=== PATIENT | male | born 1940 | race Caucasian/White ===

== ENCOUNTER 2018-07-23 03:52 | Inpatient (IN) | payer BC, MEDICARE ==
[2018-07-23 04:12] LABS: #Basophils 0.1 thou/uL (0.0-0.2); #Eosinphils 0.3 thou/uL (0.0-0.7); #Lymphocytes 2.1 thou/uL (1.20-3.40); #Monocytes 0.8 thou/uL (0.11-0.59); %Basophils 1.1 % (0.0-1.0); %Eosinophils 3.2 % (0.0-10.0); %Lymphocytes 22.8 % (21.0-51.0); %Monocytes 8.5 % (0.0-10.0); %Neutrophils 64.4 % (42.0-75.0); Hemoglobin 16.1 g/dL (14.0-18.0); Mean Corpuscular HGB CONC 34.1 g/dL (32.0-36.0); Mean Corpuscular Hemoglobin 31.6 pg (27.0-31.0); Mean Corpuscular Volume 92.6 fL (78.0-98.0); Mean Platelet Volume 8.9 fL (7.4-10.4); Platelet Count 211 thou/uL (130-400); RBC Distribution Width 12.1 % (11.5-14.5); Red Blood Cell (RBC) Count 5.09 mill/uL (4.70-6.10); White Blood Cell (WBC) Count 9.4 thou/uL (4.8-10.8)
[2018-07-23 04:18] LABS: INR-International Normal Ratio 1.1; PTT 29.9 SEC (22.9-36.1); Prothrombin Time 13.9 SEC (12.0-14.7)
[2018-07-23 04:28] LABS: ALT (SGPT) 47 U/L (8-55); AST (SGOT) 38 U/L (5-34); Albumin 4.2 g/dL (3.4-4.8); Alkaline Phosphatase 84 U/L (40-150); Anion Gap 12 mmol/L (10-20); BUN (Urea Nitrogen) 13 mg/dL (8.4-25.7); Bilirubin, Total 0.6 mg/dL (0.2-1.2); CK (CPK) 109 U/L (30-200); Calc. Creatinine Clearance 0 mL/min (70-130); Calcium 9.7 mg/dL (7.8-10.44); Carbon Dioxide 27 mmol/L (23-31); Chloride 101 mmol/L (98-107); Estimated GFR-MDRD 70; Globulin 3.1 g/dL (2.4-3.5); Glucose 213 mg/dL (83-110); Potassium 4.7 mmol/L (3.5-5.1); Protein, Total 7.3 g/dL (5.8-8.1); Sodium 135 mmol/L (136-145)
[2018-07-23 04:30] LABS: CKMB 2.2 ng/mL (0-6.6); Troponin I Less than 0.010 ng/mL (< 0.028)
[2018-07-23] MEDS ORDERED: hydrALAZINE 20 MG/ML VIAL ONE (04:30)
[2018-07-23] MEDS ORDERED: Ondansetron PF 4 MG/2 ML Vial IVP PRN (06:09)
[2018-07-23] MEDS ORDERED: Acetaminophen 325 MG TAB PO PRN (06:09)
[2018-07-23] MEDS ORDERED: Ondansetron ODT 4 MG TAB PO PRN (06:09)
--- NOTE | 2018-07-23 08:17 | CT ---
FINAL REPORT: BRAIN CT WITHOUT IV CONTRAST: History: 78-year-old male with history of neurologic changes, bruising and laceration of head. Patient status post TPA, change in mental status. FINDINGS: No focal mass or midline shift. No intra or extraaxial hemorrhage. There are several tiny punctate la cunar infarcts. IMPRESSION: No mass or bleed. Small stable lacunar infarcts. No significant change from 07-23-18 at 3:58 a.m. POS: [facility]
--- NOTE | 2018-07-23 08:21 | CT ---
PRELIMINARY REPORT/[facility]/EMERGENTY AFTER-HOURS PROCEDURE Addendum created by Carolyne Garrido DO on 07/23/2018 4:25 AM Central Time ([place])THIS REPORT CO NTAINS FINDINGS THAT MAY BE CRITICAL TO PATIENT CARE. The findings were verbally communicated via tel ephone conference with JOSE ALEJANDRO Henson at 4:20 AM CDT on 07/23/2018. The findings were acknowledged a nd understood. Initial Report created on 07/23/2018 4:08 AM Central Time ([place] & [place]) CT Head Without Intravenous Contrast EXAM DATE/TIME: 07/23/2018 3:56 AM CLINICAL HISTORY: 78 years old, male; Injury or trauma and signs and symptoms; Fall; Initial encounter; Blunt trauma (c ontusions or hematomas); Without loss of consciousness; Numbness / parasthesia; Left; Patient HX: s troke alert m79, patient fell and hit head, then was unable to move left side, last seen normal at 0200, patient now has slurred speech TECHNIQUE: Axial computed tomography images of the head/brain without intravenous contrast. COMPARISON: No relevant prior studies available. FINDINGS: Brain: Remote lacunar infarcts of the basal ganglia. There are well-demarcated foci of decreased atte nuation of the right parietal region, probably from additional remote lacunar infarcts. No acute hemo rrhage. Ventricles: Normal. No ventriculomegaly. Bones/joints: Normal. No acute fracture. Sinuses: Normal as visualized. No acute sinusitis. Mastoid air cells: Normal as visualized. No mastoid effusion. Soft tissues: Normal. IMPRESSION: No acute intracranial process. ASPECTS is 10. Thank you for allowing us to participate in the care of your patient. Dictated and Authenticated by: Carolyne Garrido DO 07/23/2018 4:08 AM Central Time ([place]) FINAL REPORT: CT BRAIN WITHOUT CONTRAST: I agree with the preliminary report provided. No acute intracranial abnormality is evident. There are remote lacunar infarcts involving the basal g anglia as well as the subcortical white matter of both cerebral hemispheres. Small lacunar infarction s involve the cerebellum bilaterally. Frontal and paranasal sinuses are clear. Mastoid air cells are clear. POS: [facility]
--- NOTE | 2018-07-23 08:24 | CT ---
PRELIMINARY REPORT/[facility]/EMERGENTY AFTER-HOURS PROCEDURE CT Cervical Spine Without Intravenous Contrast EXAM DATE/TIME: 07/23/2018 3:59 AM CLINICAL HISTORY: 78 years old, male; Injury or trauma and signs and symptoms; Fall; Initial encounter; Blunt trauma; N umbness; Patient HX: stroke alert m79, patient fell and hit head, then was unable to move left si de, last seen normal at 0200, patient now has slurred speech TECHNIQUE: Axial computed tomography images of the cervical spine without intravenous contrast. COMPARISON: No relevant prior studies available. FINDINGS: Vertebrae: Degenerative changes of the cervical spine. There is neuroforaminal narrowing with severe narrowing of the left C3-C4, moderate narrowing of the right C4-C5, moderate narrowing of bilateral C 5-C6, moderate narrowing of the left C6-C7. Discs/Spinal canal/Neural foramina: See Vertebrae Finding. Soft tissues: Unremarkable. Lungs: Lung apices are normal. IMPRESSION: No acute fracture. Thank you for allowing us to participate in the care of your patient. Dictated and Authenticated by: Carolyne Garrido DO 07/23/2018 4:25 AM Central Time ([place]) FINAL REPORT CT CERVICAL SPINE WITHOUT CONTRAST: I agree with the preliminary report provided. No acute fracture or subluxation is evident. There is a fat density mass lesion seen within the left paraspinal musculature of the neck measuring 4.6 x 7.3 cm, consistent with an intramuscular lipoma. There is multilevel spondylosis of the cervical spine, moderate in severity. Prevertebral soft tissue s and lung apices are within normal limits. IMPRESSION: 1. No acute fracture or subluxation. 2. Left paraspinal musculature lipoma. POS:
[2018-07-23] MEDS ORDERED: Famotidine 20 MG TAB PO SCH ×2 (09:00)
[2018-07-23] MEDS ORDERED: Famotidine/PF 20 mg/2ml Vial SLOW IVP SCH ×2 (09:00)
--- NOTE | 2018-07-23 09:18 | CT ---
PRELIMINARY REPORT/[facility]/EMERGENTY AFTER-HOURS PROCEDURE CT Angiography Head With Intravenous Contrast EXAM DATE/TIME: 07/23/2018 4:03 AM CLINICAL HISTORY: 78 years old, male; Injury or trauma and signs and symptoms; Fall; Initial encounter; Blunt trauma; H ead; Paralysis, transient of limb; Patient HX: stroke alert m79, patient fell and hit head, then was unable to move left side, last seen normal at 0200, patient now has slurred speech TECHNIQUE: Axial computed tomographic angiography images of the head with intravenous contrast using CT angiogra phy protocol. MIP reconstructed images were created and reviewed. COMPARISON: CT Cervical Spine WO Con 07/23/2018 3:59 AM FINDINGS: Right internal carotid artery: Moderate calcifications of the cavernous right ICA with areas of mild to moderate narrowing/irregularities without critical stenosis, image 232 of series 2. Right anterior cerebral artery: Unremarkable. No occlusion or significant stenosis. No aneurysm. Right middle cerebral artery: There are minimal irregularities of the bilateral MCAs. No occlusion or significant stenosis. No aneurysm. Right posterior cerebral artery: There are irregularities involving bilateral motor tester. There is question able beaded appearance of the motor tester, left greater than right. No aneurysm. Right vertebral artery: Unremarkable. No occlusion or significant stenosis. No aneurysm. Left internal carotid artery: There is moderate change in caliber of the cavernous left ICA, image 60 of series 201 correlating to image 227 of series 2. Minimal atheromatous calcifications of the arun nous left ICA. Left anterior cerebral artery: The left A1 is not well visualized. There is diminutive vessel in the respective course of the left A1, image 241-242 of series 2. This could be atretic left A1 segment or collateral. Left middle cerebral artery: There are minimal irregularities of the bilateral MCAs. No occlusion or significant stenosis. No aneurysm. Left posterior cerebral artery: There are irregularities involving bilateral motor tester. There is questiona ble beaded appearance of the motor tester, left greater than right. No aneurysm. Left vertebral artery: There is narrowing of the left intracranial vertebral artery. There are also i rregularities of the proximal cervical left vertebral artery with approximately 50% stenosis. Basilar artery: Mild irregularities of the distal aspect of the basilar artery. No occlusion or signi ficant stenosis. No aneurysm. 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 Irregularities with areas of narrowing more pronounced of the cavernous left ICA with mild irregular appearance of bilateral MCAs and slightly worse involving motor tester with somewhat beaded appearance, again left greater than right. Although the findings may be due to atheromatous changes with soft plaques cannot exclude vasculitis. CT Angiography Neck With Intravenous Contrast TECHNIQUE: Axial computed tomographic angiography images of the neck with intravenous contrast using CT angiogra phy protocol. MIP reconstructed images were created and reviewed. COMPARISON: CT Cervical Spine WO Con 07/23/2018 3:59 AM FINDINGS: VASCULATURE: Right common carotid artery: Moderate atheromatous calcifications of the left carotid bulb. No signif icant stenosis. No dissection or occlusion. Right internal carotid artery: There is at least 68% stenosis of the right proximal ICA. No dissectio n or occlusion. Right external carotid artery: Normal. No occlusion or significant stenosis. Right vertebral artery: There is narrowing of the left intracranial vertebral artery. There are also irregularities of the proximal cervical left vertebral artery with approximately 50% stenosis. Left common carotid artery: Normal. No significant stenosis. No dissection or occlusion. Left internal carotid artery: There is approximately 36% stenosis of the proximal left ICA. No dissec tion or occlusion. Left external carotid artery: Normal. No occlusion or significant stenosis. Left vertebral artery: There is narrowing of the left intracranial vertebral artery. There are also i rregularities of the proximal cervical left vertebral artery with approximately 50% stenosis. NECK: Bones/joints: No acute fracture. Degenerative changes of the cervical spine. Please see CT report of CT C-spine Soft tissues: Normal. No significant soft tissue swelling. IMPRESSION: At least 68% stenosis of the right proximal ICA and approximately 36% stenosis of the proximal left ICA. Irregularities of the proximal cervical left vertebral artery with approximately 50% stenosis. COMMENT: Degree of carotid stenosis was determined using NASCET or SRU criteria. Mild: <50% stenosis. Moderate: 50-69% stenosis. Severe: 70-94% stenosis. Near occlusion: 95-99% stenosis. Occluded: 100% s tenosis. THIS REPORT CONTAINS FINDINGS THAT MAY BE CRITICAL TO PATIENT CARE. The findings were verbally commun icated via telephone conference with ELAINE Mukherjee at 4:56 AM CDT on 07/23/2018. The findings were acknowledged and understood. Thank you for allowing us to participate in the care of your patient. Dictated and Authenticated by: Carolyne Garrido DO 07/23/2018 5:32 AM Central Time ([place]) FINAL REPORT EMERGENCY AFTER HOURS CT ANGIO NECK: Date: 07/23/18 FINDINGS/IMPRESSION: I agree with the preliminary report provided by [facility]. There is a moderate to severe degree of narrowing involving the proximal right ICA with narrowing cliff roaching 70% stenosis. There is very mild atherosclerotic irregularity involving the proximal left internal carotid artery. There is moderate narrowing involving the proximal basilar artery and left intracranial vertebral art himanshu. The right vertebral artery is diminutive. Both anterior cerebral arteries originate off the right internal carotid artery. POS: [facility]
[2018-07-23] MEDS ORDERED: [UNRECOGNIZED DRUG - REMARK] FS SCH (09:26)
[2018-07-23] MEDS ORDERED: Dextrose 5% in Water 1,000 ML IV PRN (09:26)
[2018-07-23] MEDS ORDERED: Dextrose 50% Abboject 50 ML SYRINGE SLOW IVP PRN (09:26)
[2018-07-23] MEDS: Labetalol HCl 100 MG/20 ML VIAL SLOW IVP PRN ×3 (11:02→19:58)
[2018-07-23] MEDS ORDERED: ISOVUE-370 76%-LOCM 1 ML ONE (13:59)
[2018-07-23] MEDS: HumaLOG 300 UNITS/3 ML VIAL SC PRN ×2 (14:59→17:20)
[2018-07-23] MEDS ORDERED: Acetaminophen 650 MG Suppository PR PRN (15:51)
[2018-07-23] MEDS: Sodium Chloride 0.9% 1,000 ML IV SCH ×2 (17:58→21:54)
[2018-07-23] MEDS: Pantoprazole 40 MG VIAL IVP SCH (21:54)
[2018-07-23] MEDS: Atorvastatin Calcium 40 MG TAB PO SCH (21:57)
[2018-07-24 05:50] LABS: #Eosinphils 0.1 thou/uL (0.0-0.7); #Lymphocytes 2.6 thou/uL (1.20-3.40); #Monocytes 1.1 thou/uL (0.11-0.59); #Neutrophils 6.7 thou/uL (1.40-6.50); %Basophils 0.4 % (0.0-1.0); %Eosinophils 0.6 % (0.0-10.0); %Lymphocytes 24.6 % (21.0-51.0); %Monocytes 10.6 % (0.0-10.0); %Neutrophils 63.7 % (42.0-75.0); Mean Corpuscular HGB CONC 32.5 g/dL (32.0-36.0); Mean Corpuscular Volume 92.5 fL (78.0-98.0); Mean Platelet Volume 8.9 fL (7.4-10.4); Platelet Count 220 thou/uL (130-400); RBC Distribution Width 12.3 % (11.5-14.5); Red Blood Cell (RBC) Count 5.01 mill/uL (4.70-6.10); White Blood Cell (WBC) Count 10.4 thou/uL (4.8-10.8)
[2018-07-24 06:22] LABS: ALT (SGPT) 44 U/L (8-55); AST (SGOT) 51 U/L (5-34); Alkaline Phosphatase 62 U/L (40-150); Anion Gap 13 mmol/L (10-20); BUN (Urea Nitrogen) 13 mg/dL (8.4-25.7); Bilirubin, Total 0.9 mg/dL (0.2-1.2); Calc. Creatinine Clearance 80 mL/min (70-130); Calcium 9.1 mg/dL (7.8-10.44); Carbon Dioxide 24 mmol/L (23-31); Cardiac Risk 3.5 (Less than 4.5); Chloride 103 mmol/L (98-107); Cholesterol 152 mg/dl (< 200 Desired); Estimated GFR-MDRD 71; Glucose 239 mg/dL (83-110); HDL Cholesterol 44 mg/dL (>60 Neg Risk); LDL Cholesterol, Calculated 89 mg/dL; Potassium 4.2 mmol/L (3.5-5.1); Sodium 136 mmol/L (136-145); Triglycerides 94 mg/dL (Less than 150)
[2018-07-24] MEDS: HumaLOG 300 UNITS/3 ML VIAL SC PRN (06:28)
--- NOTE | 2018-07-24 08:22 | CT ---
PRELIMINARY REPORT/[facility]/EMERGENTY AFTER-HOURS PROCEDURE CT Head Without Intravenous Contrast EXAM DATE/TIME: 07/24/2018 4:04 AM CLINICAL HISTORY: 78 years old, male; Condition or disease; Other: CVA; Patient HX: Follw up CVA TECHNIQUE: Axial computed tomography images of the head/brain without intravenous contrast. COMPARISON: CT Brain WO Con 07/23/2018 3:56 AM FINDINGS: Brain: Low attenuation areas are now seen in the upper right frontal and parietal regions, and the in ferior right frontal lobe, compatible with areas evolving subacute infarct. No acute intracranial hemorrhage or midline shift. There is decreased attenuation in the periventricular white matter, likely from microvascular disease . There are small old lacunar infarcts in the basal ganglia regions/periventricular white matter bilate rally, similar to prior exam. Ventricles: Ventricle size is normal for age. Bones/joints: No definite acute skull fracture. Sinuses: Included paranasal sinuses are essentially clear. Mastoid air cells: No significant acute finding. IMPRESSION: 1. Low attenuation areas are now seen in the upper right frontal and parietal regions, and the inferi or right frontal lobe, compatible with areas evolving subacute infarct. 2. No acute intracranial hemorrhage or midline shift. 3. Changes of microvascular disease, and small old lacunar infarcts. Thank you for allowing us to participate in the care of your patient. Dictated and Authenticated by: Dony Rausch MD 07/24/2018 4:47 AM Central Time ([place]) FINAL REPORT HEAD CT WITHOUT CONTRAST: DATE: 07/24/2018. TIME: 4:05 a.m. COMPARISON: 07/23/2018, 7:35 a.m. HISTORY: Reevaluate stroke, neurological symptoms. FINDINGS: I agree with the preliminary [facility] report. The imaged paranasal sinuses/mastoid air cells are well a erated. There is no displaced calvarial fracture. There is a 5.6 x 3.6 cm area of abnormal hypodensity within the brain parenchyma on the right near th e vertex involving the frontal lobe with loss of da silva-white differentiation, evidence of new/interval stroke and cytotoxic edema. On axial images 26 and 27, there may be a focal area of loss of da silva-wh ite differentiation within the left frontal lobe which measures in the 1.4 x 0.7 cm range. This coul d represent volume averaging or an additional area of cytotoxic edema on the basis of infarction. There is no intracranial hemorrhage, midline shift, or mass effect. There is a peripheral wedge-shap ed area of hypodensity within the inferior aspect of the right frontal lobe of image 20 which may rep resent an additional area of cytotoxic edema on the basis of infarction. IMPRESSION: New areas of cytotoxic edema/loss of da silva-white differentiation suggests multifocal acute infarctions . No associated hemorrhage. MRI is advised. POS: [facility]
[2018-07-24] MEDS ORDERED: Dextrose 50% Abboject 50 ML SYRINGE SLOW IVP PRN (09:50)
[2018-07-24] MEDS ORDERED: Dextrose 5% in Water 1,000 ML IV PRN (09:50)
--- NOTE | 2018-07-24 10:40 | CON ---
DATE OF CONSULTATION: 07/24/2018 Thirty-five minutes critical care time. HISTORY OF PRESENT ILLNESS: The patient is a 78-year-old male who was admitted to the hospital more than 24 hours ago with acute left-sided weakness. CT initially was negative. He was given t-PA with out improvement in his symptoms. Over the last 24 hours he has become more somnolent. He will say h is name when asked, but does not say much else. He will withdraw with all 4 extremities. A repeat C T scan has showed an evolving infarct in the right frontal parietal region. PAST MEDICAL HISTORY: 1. Diabetes mellitus. 2. Hypertension. 3. Osteoarthritis. 4. Prostate cancer. 5. Gastroesophageal reflux disease. 6. AAA. PAST SURGICAL HISTORY: Prostatectomy, tonsillectomy, back surgery x4. SOCIAL HISTORY: Nonsmoker, does not consume alcohol, does not use illicit drugs. ALLERGIES: ADHESIVE BANDAGES, HYDROCODONE, IODINATED CONTRAST, SULFA, and TYLENOL. MEDICATIONS PRIOR TO ADMISSION: Glipizide 2.5 mg twice daily, amlodipine 5 mg once daily, metoprolol 50 mg once daily, gabapentin 300 mg daily, and omeprazole 20 mg daily. REVIEW OF SYSTEMS: Review of systems cannot be obtained from the patient as he is neurologically com promised. PHYSICAL EXAMINATION: VITAL SIGNS: Pulse 77, blood pressure 153/67, O2 sat 95% on room air, respirations 21. GENERAL: The patient is lying supine in bed. NEUROLOGIC: His pupils are reactive. He has a gag reflex. He withdraws all 4 extremities to pain. HEENT: Otherwise, unremarkable. NECK: No bruits, no JVD. LUNGS: Clear without wheezing. CARDIAC: S1, S2 regular. ABDOMEN: Soft. EXTREMITIES: No edema. LABORATORY DATA: White blood cell count 10.4, hematocrit 46.4, platelet count 220, sodium 136, potas sium 4.2, chloride 103, CO2 24, BUN 13, creatinine 1.0, glucose 239. ASSESSMENT: 1. Ischemic stroke with right frontal parietal involvement and a fairly profound neurologic deficit 2. History of diabetes mellitus. 3. History of hypertension. RECOMMENDATIONS: 1. We need more aggressive insulin coverage. I will change him to a more aggressive sliding scale. 2. Neurology consultation and follow through. 3. Okay to transfer to Neurology floor from my standpoint - I will discuss with Dr. Ryan.
[2018-07-24] MEDS: Insulin Regular 300 UNITS/3 ML VIAL SC PRN ×4 (11:20→23:55)
--- NOTE | 2018-07-24 11:28 | CON ---
DATE OF CONSULTATION: 07/24/2018 CONSULTING PHYSICIAN: Hospitalist Service. IMPRESSION: 1. Right middle cerebral artery stroke. 2. Diabetes. 3. Hypertension. 4. Status post TPA. PLAN: 1. Start antiplatelet therapy once swallowing to be established. 2. Start statin, PT, OT and speech therapy assessments. 3. Echocardiogram. Mr. Vences is a 78-year-old man who presented with left-sided weakness and neglect. He was a TPA cand idate and received the infusion. After being transferred up to the ICU, he became less responsive. A follow up CT did not show any evidence of hemorrhage. He has continued to be limitedly responsive. He occasionally will speak one word or another. He seems to be doing some purposeful activity acco rding to the . A follow up CT today showed evidence of an ischemic injury in the right MCA jose tory. PAST MEDICAL HISTORY: As listed above. ALLERGIES: HYDROCODONE, IODINE, SULFA, TYLENOL, TAPE. SOCIAL HISTORY: , no tobacco use. FAMILY HISTORY: Not obtainable. REVIEW OF SYSTEMS: Not obtainable. PHYSICAL EXAMINATION: GENERAL: He is a well-nourished elderly gentleman who appears younger than his age. VITAL SIGNS: Blood pressure 137/61, pulse 72, respirations 20, saturations 95%. He had some transie nt fever overnight. HEENT: Pupils equal and reactive. Conjunctivae clear. Cranium normocephalic and atraumatic. NECK: Rotated to the right. EXTREMITIES: No cyanosis or edema. NEUROLOGIC: He would not respond verbally to me. He would not follow any commands. There is no fac ial asymmetry. His eyes are deviated to the right. His doll's maneuver produced appropriate deviati on to the left. The tone in the left arm was diminished compared to the right. The tone in the legs was relatively symmetric. Plantar responses seem to be upgoing bilaterally. No abnormal movements were seen. Gait was not testable. IMAGING DATA: EKG sinus rhythm. CTA showed some minimal carotid disease, but no major vessel occlus ions. LABORATORY STUDIES: Unremarkable CBC, coags, and chemistry other than glucose is running in the low 200s, cholesterol ratio was 3.5. SUMMARY: This unfortunate 78-year-old gentleman suffered a fairly significant stroke in the right MC A territory. There is no carotid disease that needs to be addressed. We can start a rehab process a nd hopefully he will perk up enough to start taking by mouth.
[2018-07-24] MEDS: Sodium Chloride 0.9% 1,000 ML IV SCH (11:40)
--- NOTE | 2018-07-24 13:30 | CT ---
PRELIMINARY REPORT/[facility]/EMERGENTY AFTER-HOURS PROCEDURE CT Angiography Head With Intravenous Contrast EXAM DATE/TIME: 07/23/2018 4:03 AM CLINICAL HISTORY: 78 years old, male; Injury or trauma and signs and symptoms; Fall; Initial encounter; Blunt trauma; H ead; Paralysis, transient of limb; Patient HX: stroke alert m79, patient fell and hit head, then was unable to move left side, last seen normal at 0200, patient now has slurred speech TECHNIQUE: Axial computed tomographic angiography images of the head with intravenous contrast using CT angiogra phy protocol. MIP reconstructed images were created and reviewed. COMPARISON: CT Cervical Spine WO Con 07/23/2018 3:59 AM FINDINGS: Right internal carotid artery: Moderate calcifications of the cavernous right ICA with areas of mild to moderate narrowing/irregularities without critical stenosis, image 232 of series 2. Right anterior cerebral artery: Unremarkable. No occlusion or significant stenosis. No aneurysm. Right middle cerebral artery: There are minimal irregularities of the bilateral MCAs. No occlusion or significant stenosis. No aneurysm. Right posterior cerebral artery: There are irregularities involving bilateral visual c developer. There is question able beaded appearance of the visual c developer, left greater than right. No aneurysm. Right vertebral artery: Unremarkable. No occlusion or significant stenosis. No aneurysm. Left internal carotid artery: There is moderate change in caliber of the cavernous left ICA, image 60 of series 201 correlating to image 227 of series 2. Minimal atheromatous calcifications of the arun nous left ICA. Left anterior cerebral artery: The left A1 is not well visualized. There is diminutive vessel in the respective course of the left A1, image 241-242 of series 2. This could be atretic left A1 segment or collateral. Left middle cerebral artery: There are minimal irregularities of the bilateral MCAs. No occlusion or significant stenosis. No aneurysm. Left posterior cerebral artery: There are irregularities involving bilateral visual c developer. There is questiona ble beaded appearance of the visual c developer, left greater than right. No aneurysm. Left vertebral artery: There is narrowing of the left intracranial vertebral artery. There are also i rregularities of the proximal cervical left vertebral artery with approximately 50% stenosis. Basilar artery: Mild irregularities of the distal aspect of the basilar artery. No occlusion or signi ficant stenosis. No aneurysm. 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 Irregularities with areas of narrowing more pronounced of the cavernous left ICA with mild irregular appearance of bilateral MCAs and slightly worse involving visual c developer with somewhat beaded appearance, again left greater than right. Although the findings may be due to atheromatous changes with soft plaques cannot exclude vasculitis. CT Angiography Neck With Intravenous Contrast TECHNIQUE: Axial computed tomographic angiography images of the neck with intravenous contrast using CT angiogra phy protocol. MIP reconstructed images were created and reviewed. COMPARISON: CT Cervical Spine WO Con 07/23/2018 3:59 AM FINDINGS: VASCULATURE: Right common carotid artery: Moderate atheromatous calcifications of the left carotid bulb. No signif icant stenosis. No dissection or occlusion. Right internal carotid artery: There is at least 68% stenosis of the right proximal ICA. No dissectio n or occlusion. Right external carotid artery: Normal. No occlusion or significant stenosis. Right vertebral artery: There is narrowing of the left intracranial vertebral artery. There are also irregularities of the proximal cervical left vertebral artery with approximately 50% stenosis. Left common carotid artery: Normal. No significant stenosis. No dissection or occlusion. Left internal carotid artery: There is approximately 36% stenosis of the proximal left ICA. No dissec tion or occlusion. Left external carotid artery: Normal. No occlusion or significant stenosis. Left vertebral artery: There is narrowing of the left intracranial vertebral artery. There are also i rregularities of the proximal cervical left vertebral artery with approximately 50% stenosis. NECK: Bones/joints: No acute fracture. Degenerative changes of the cervical spine. Please see CT report of CT C-spine Soft tissues: Normal. No significant soft tissue swelling. IMPRESSION: At least 68% stenosis of the right proximal ICA and approximately 36% stenosis of the proximal left ICA. Irregularities of the proximal cervical left vertebral artery with approximately 50% stenosis. COMMENT: Degree of carotid stenosis was determined using NASCET or SRU criteria. Mild: <50% stenosis. Moderate: 50-69% stenosis. Severe: 70-94% stenosis. Near occlusion: 95-99% stenosis. Occluded: 100% s tenosis. THIS REPORT CONTAINS FINDINGS THAT MAY BE CRITICAL TO PATIENT CARE. The findings were verbally commun icated via telephone conference with ELAINE Mukherjee at 4:56 AM CDT on 07/23/2018. The findings were acknowledged and understood. Thank you for allowing us to participate in the care of your patient. Dictated and Authenticated by: Carolyne Garrido DO 07/23/2018 5:32 AM Central Time ([place]) FINAL REPORT EMERGENCY AFTER HOURS CT ANGIO NECK: Date: 07/23/18 FINDINGS/IMPRESSION: I agree with the preliminary report provided by [facility]. There is a moderate to severe degree of narrowing involving the proximal right ICA with narrowing cliff roaching 70% stenosis. There is very mild atherosclerotic irregularity involving the proximal left internal carotid artery. There is moderate narrowing involving the proximal basilar artery and left intracranial vertebral art himanshu. The right vertebral artery is diminutive. Both anterior cerebral arteries originate off the right internal carotid artery.
[2018-07-24] MEDS: Pantoprazole 40 MG VIAL IVP SCH (20:40)
[2018-07-24] MEDS: Atorvastatin Calcium 40 MG TAB PO SCH (20:43)
[2018-07-25] MEDS: Sodium Chloride 0.9% 1,000 ML IV SCH ×2 (03:24→17:04)
[2018-07-25] MEDS: Insulin Regular 300 UNITS/3 ML VIAL SC PRN ×4 (04:14→17:04)
[2018-07-25 05:32] LABS: Anion Gap 9 mmol/L (10-20); BUN (Urea Nitrogen) 11 mg/dL (8.4-25.7); Calc. Creatinine Clearance 93 mL/min (70-130); Calcium 8.8 mg/dL (7.8-10.44); Carbon Dioxide 24 mmol/L (23-31); Chloride 104 mmol/L (98-107); Estimated GFR-MDRD 87; Glucose 165 mg/dL (83-110); Sodium 133 mmol/L (136-145)
--- NOTE | 2018-07-25 08:49 | PRG ---
DATE OF SERVICE: 07/25/2018 SUBJECTIVE: The patient is doing reasonably well. He is up in a chair. He can answer some question s. He withdraws all 4 extremities, but does not follow commands specifically. PHYSICAL EXAMINATION: VITAL SIGNS: His temperature is 99.2, pulse 70, blood pressure 146/98, O2 sat 97%. HEENT: Unremarkable. LUNGS: Clear. CARDIAC: S1 and S2 regular. ABDOMEN: Soft. EXTREMITIES: No edema. LABORATORY DATA: Sodium 133, potassium 4, BUN 11, creatinine 0.8, glucose 165. ASSESSMENT: 1. 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 2. Diabetes mellitus. 3. History of hypertension. PLAN: He can be transferred out to the stroke unit. The main issue now is stroke rehab, he is clini adelia stable from pulmonary standpoint, we would be available as needed.
--- NOTE | 2018-07-25 11:12 | PQF ---
CLINICAL DOCUMENTATION IMPROVEMENT CLARIFICATION FORM: ICD-10 Updated PLEASE DO AN ADDENDUM TO THE PROGRESS NOTE WITH ANY DOCUMENTATION UPDATES OR ADDITIONS AND CARRY THROUGH TO DC SUMMARY. THANK YOU. DATE: 07/28 ATTN: DR. ISAIAH HUGHES / DR. Wei MURILLO Please exercise your independent, professional judgment in responding to the clarification form. Clinical indicators are provided on the bottom of this form for your review. Please check appropriate box(s): [ ] Cerebral edema / Vasogenic edema Due to: [ ] Acute cerebral infarction [ ] Evolving infarct R frontal parietal region [ ] Intracranial Hematoma [ x ] Other diagnosis __hemorrhagic conversion of R MCA infarct [ ] Unable to determine For continuity of documentation, please document condition throughout progress notes and discharge summary. Thank You. CLINICAL INDICATORS - SIGNS / SYMPTOMS / LABS CT 357 (INITIAL IN ER): FINDINGS: WELL-DEMARCATED FOCI OF DECREASED ATTENUATION OF RIGHT PARIETAL REGION, PROBABLY FROM ADDITIONAL REMOTE LACUNAR INFARCTS. NO ACUTE HEMORRHAGE CT 749: NO SIGNIFICANT CHANGE FROM 357. CT 403: FINDINGS: ABNORMAL HYPODENSITY WITHIN THE BRAIN PARENCHYMA ON THE RIGHT NEAR THE VERTEX INVOLVING THE FRONTAL LOBE W/LOSS OF DELATORRE-WHITE DIFFERENTIATION, EVIDENCE OF NEW/INTERVAL STROKE & CYTOTOXIC EDEMA. IMPRESSION: NEW AREAS OF CYTOTOXIC EDEMA/LOSS OF DELATORRE-WHITE DIFFERENTIATION SUGGESTS MULTIFOCAL ACUTE INFARCTIONS. MRI 07/26 - ...THERE HAS BEEN HEMORRHAGIC CONVERSION IN THE R FRONTAL INFARCT PULMONOLOGY H&P 07/24: ...ADMITTED MORE THAN 24 HRS AGO W/ACUTE L SIDED WEAKNESS. CT INITIALLY WAS NEGATIVE. OVER THE LAST 24 HRS HE HAS BECOME MORE SOMNOLENT. ...A REPEAT CT SCAN HAS SHOWED AN EVOLVING INFARCT IN THE R FRONTAL PARIETAL REGION. RISK FACTORS: R MCA ISCHEMIC STROKE W/ EVOLVING INFARCT L SIDED HEMIPLEGIA L SIDED NEGLECT TREATMENTS: NEURO CHECKS NEUROLOGY CONSULT CCU MONITORING THANK YOU! Mi (This form is maintained as a part of the permanent medical record) 2014 [employer]. All Rights Reserved Mi Buchanan RN, BSN [email or web address] Office: [phone] [facility]
[2018-07-25] MEDS ORDERED: Aspirin 300 MG Suppository PR SCH (14:30)
[2018-07-25] MEDS: Atorvastatin Calcium 40 MG TAB PO SCH (21:45)
[2018-07-25] MEDS: Pantoprazole 40 MG VIAL IVP SCH (21:45)
[2018-07-26] MEDS: Insulin Regular 300 UNITS/3 ML VIAL SC PRN ×2 (06:30→12:46)
[2018-07-26] MEDS: Sodium Chloride 0.9% 1,000 ML IV SCH ×2 (08:36→21:36)
[2018-07-26] MEDS ORDERED: Aspirin 300 MG Suppository PR SCH (09:00)
[2018-07-26] MEDS: Labetalol HCl 100 MG/20 ML VIAL SLOW IVP PRN (10:19)
--- NOTE | 2018-07-26 12:54 | PDOC.PN ---
- Subjective Encounter Start Date: 07/24/18 Encounter Start Time: 10:30 -: non-verbal follow up for right MCA stroke, S/P t=PA Pt remains in ICU, no significant change. got labetalol X 1 yesterday, BP has been better since No F/C, no N/V/d/C, no change in MS Pt did tell me he ewas at [facility] and 'ouch' when i pressed on his nailbed - Objective Vital Signs & Weight: Vital Signs (12 hours) Temp Pulse Resp BP BP BP BP 07/26/18 11:39 98.9 F 63 20 07/26/18 10:19 73 190/96 H 07/26/18 09:21 194/101 H 204/112 H 190/91 H 07/26/18 07:50 99.0 F 66 20 07/26/18 04:13 99.2 F 72 18 BP Pulse Ox 07/26/18 11:39 135/73 95 07/26/18 10:19 07/26/18 09:21 07/26/18 07:50 147/77 H 96 07/26/18 04:13 162/80 H 94 L Weight Admit Weight 209 lb Weight 210 lb 4 oz Most Recent Monitor Data Heart Rate from ECG 81 NIBP 157/82 NIBP BP-Mean 107 Respiration from ECG 17 SpO2 93 I&O: 07/25/18 07/26/18 07/27/18 06:59 06:59 05:59 Intake Total 1734 840 Output Total 1 Balance 1733 840 Result Diagrams: 07/24/18 05:38 07/25/18 04:59 Additional Labs: Accuchecks 07/26/18 07/26/18 07/26/18 12:16 06:01 00:03 POC Glucose 189 H 176 H 173 H 07/25/18 07/25/18 20:53 16:36 POC Glucose 167 H 155 H Phys Exam - Physical Examination Constitutional: NAD HEENT: PERRLA, moist MMs, sclera anicteric, oral pharynx no lesions Neck: no nodes, no JVD, supple, full ROM Respiratory: no wheezing, no rales, no rhonchi, clear to auscultation bilateral Cardiovascular: RRR, no significant murmur, no rub Gastrointestinal: soft, non-tender, no distention, positive bowel sounds Musculoskeletal: no edema right tone normal, left strength 3/5 to upper arm, 0/5 to forearm Lymphatic: no nodes Deviation from normal: nonverbal Skin: no rash, normal turgor, cap refill <2 seconds Dx/Plan (1) Acute right MCA stroke Code(s): I63.511 - CEREB INFRC D/T UNSP OCCLS OR STENOS OF RIGHT MID CEREB ART Status: Acute (2) DM2 (diabetes mellitus, type 2) Status: Chronic Qualifiers: Diabetes mellitus oysterman insulin use: without oysterman use Diabetes mellitus complication status: without complication Qualified Code(s): E11.9 - Type 2 diabetes mellitus without complications (3) Left-sided weakness Code(s): R53.1 - WEAKNESS Status: Acute (4) HTN (hypertension) Code(s): I10 - ESSENTIAL (PRIMARY) HYPERTENSION Status: Chronic Qualifiers: Hypertension type: essential hypertension Qualified Code(s): I10 - Essential (primary) hypertension - Plan cont current plan of care, plan discussed w/ family, medina catheter, PT/OT, community mental health social worker, speech therapy, DVT proph w/SCDs * . start rectal ASA 300mg OK daily today
--- NOTE | 2018-07-26 13:06 | PDOC.PN ---
- Subjective Encounter Start Date: 07/25/18 Encounter Start Time: 11:30 -: non-verbal follow up for right MCA acute ischemic stroke, S/P T-PA. follow up CT done, evolving stroke showing in the frontal bilaterlaly and right parietal regions No sig changes overnight No f/c, no N/V/D/C, pt transferred to floor to Stroke unit ROS not obtainable - Objective MAR Reviewed: Yes Vital Signs & Weight: Vital Signs (12 hours) Temp Pulse Resp BP BP BP BP 07/26/18 11:39 98.9 F 63 20 07/26/18 10:19 73 190/96 H 07/26/18 09:21 194/101 H 204/112 H 190/91 H 07/26/18 07:50 99.0 F 66 20 07/26/18 04:13 99.2 F 72 18 BP Pulse Ox 07/26/18 11:39 135/73 95 07/26/18 10:19 07/26/18 09:21 07/26/18 07:50 147/77 H 96 07/26/18 04:13 162/80 H 94 L Weight Admit Weight 209 lb Weight 210 lb 4 oz Most Recent Monitor Data Heart Rate from ECG 81 NIBP 157/82 NIBP BP-Mean 107 Respiration from ECG 17 SpO2 93 I&O: 07/25/18 07/26/18 07/27/18 06:59 06:59 05:59 Intake Total 1734 840 Output Total 1 Balance 1733 840 Result Diagrams: 07/24/18 05:38 07/25/18 04:59 Additional Labs: Accuchecks 07/26/18 07/26/18 07/26/18 12:16 06:01 00:03 POC Glucose 189 H 176 H 173 H 07/25/18 07/25/18 20:53 16:36 POC Glucose 167 H 155 H Radiology Reviewed by me: Yes Phys Exam - Physical Examination Constitutional: NAD HEENT: PERRLA, moist MMs, sclera anicteric, oral pharynx no lesions Neck: no nodes, no JVD, supple, full ROM Respiratory: no wheezing, no rales, no rhonchi, clear to auscultation bilateral Cardiovascular: RRR, no significant murmur, no rub Gastrointestinal: soft, non-tender, no distention, positive bowel sounds Musculoskeletal: no edema unchanged except normal RUE and RLE tone Lymphatic: no nodes Skin: no rash, normal turgor, cap refill <2 seconds Dx/Plan (1) Acute right MCA stroke Code(s): I63.511 - CEREB INFRC D/T UNSP OCCLS OR STENOS OF RIGHT MID CEREB ART Status: Acute (2) DM2 (diabetes mellitus, type 2) Status: Chronic Qualifiers: Diabetes mellitus shelter insulin use: without extermination supervisor use Diabetes mellitus complication status: without complication Qualified Code(s): E11.9 - Type 2 diabetes mellitus without complications (3) Left-sided weakness Code(s): R53.1 - WEAKNESS Status: Acute (4) HTN (hypertension) Code(s): I10 - ESSENTIAL (PRIMARY) HYPERTENSION Status: Chronic Qualifiers: Hypertension type: essential hypertension Qualified Code(s): I10 - Essential (primary) hypertension - Plan * .
--- NOTE | 2018-07-26 13:09 | PDOC.PN ---
- Subjective Encounter Start Date: 07/26/18 Encounter Start Time: 09:15 -: non-verbal follow up for acute ischemic Right MCA distribution stroke No F/C, no N/V/D/C, no CP or SOB. Pt nonverbal, not opening eyes or following commands today ROS not obtainable - Objective MAR Reviewed: Yes Vital Signs & Weight: Vital Signs (12 hours) Temp Pulse Resp BP BP BP BP 07/26/18 11:39 98.9 F 63 20 07/26/18 10:19 73 190/96 H 07/26/18 09:21 194/101 H 204/112 H 190/91 H 07/26/18 07:50 99.0 F 66 20 07/26/18 04:13 99.2 F 72 18 BP Pulse Ox 07/26/18 11:39 135/73 95 07/26/18 10:19 07/26/18 09:21 07/26/18 07:50 147/77 H 96 07/26/18 04:13 162/80 H 94 L Weight Admit Weight 209 lb Weight 210 lb 4 oz Most Recent Monitor Data Heart Rate from ECG 81 NIBP 157/82 NIBP BP-Mean 107 Respiration from ECG 17 SpO2 93 I&O: 07/25/18 07/26/18 07/27/18 06:59 06:59 05:59 Intake Total 1734 840 Output Total 1 Balance 1733 840 Result Diagrams: 07/27/18 04:42 07/27/18 04:42 Additional Labs: Accuchecks 07/26/18 07/26/18 07/26/18 12:16 06:01 00:03 POC Glucose 189 H 176 H 173 H 07/25/18 07/25/18 20:53 16:36 POC Glucose 167 H 155 H Phys Exam - Physical Examination Constitutional: NAD HEENT: PERRLA, moist MMs, sclera anicteric, oral pharynx no lesions Neck: no nodes, no JVD, supple, full ROM Respiratory: no wheezing, no rales, no rhonchi, clear to auscultation bilateral Cardiovascular: RRR, no significant murmur, no rub Gastrointestinal: soft, non-tender, no distention, positive bowel sounds Musculoskeletal: no edema Lymphatic: no nodes Skin: no rash, normal turgor, cap refill <2 seconds Dx/Plan (1) Acute right MCA stroke Code(s): I63.511 - CEREB INFRC D/T UNSP OCCLS OR STENOS OF RIGHT MID CEREB ART Status: Acute Comment: neurology has seen, MRI ordered, ASA rectally (2) DM2 (diabetes mellitus, type 2) Status: Chronic Qualifiers: Diabetes mellitus usp insulin use: without usp use Diabetes mellitus complication status: without complication Qualified Code(s): E11.9 - Type 2 diabetes mellitus without complications (3) Left-sided weakness Code(s): R53.1 - WEAKNESS Status: Acute (4) HTN (hypertension) Code(s): I10 - ESSENTIAL (PRIMARY) HYPERTENSION Status: Chronic Qualifiers: Hypertension type: essential hypertension Qualified Code(s): I10 - Essential (primary) hypertension - Plan * .
--- NOTE | 2018-07-26 14:08 | HP ---
DATE OF ADMISSION: 07/23/2018 PRIMARY CARE PHYSICIAN: Unknown. CHIEF COMPLAINT: Stroke. HISTORY OF PRESENT ILLNESS: Please note history is taken from the chart as I am seeing the patient, the patient is noncommunicative. is at bedside and does give additional history. Mr. Vencse is a 70-year-old male with history of hypertension who presents to the emergency department after being found down. Patient was noted to have left-sided weakness/paresis, slurred speech and l eft facial droop. EMS was activated at 0200 when the patient's saw him fall. Patient reportedl y admitted to hitting his head, but denied loss of consciousness, was able to talk and give a history when he first presented to the emergency department. Due to the fact that his event was felt to have occurred at 0200, the patient was ruled in and given TPA in the emergency department and has been admitted to the ICU post-TPA protocol. Dr. Ambrose was a ccepting physician, it has been a hold over admission for me. Per nursing, on arrival to the ICU, patient's condition was not the same as it was in the emergency d epartment. He was no longer talking, had leftward eye deviation and increased right-sided tone. My evaluation was confirmed. The patient is not giving any further history. Repeat stat CT scan was do ne that showed no evidence of intracranial changes, certainly no bleed. The is at the bedside, said the patient is a FULL CODE and would want everything done. We discu ssed feeding tube options and said that the patient would want a feeding tube if needed. PAST MEDICAL HISTORY: 1. Diabetes mellitus type 2. 2. Hypertension. 3. Osteoarthritis. 4. History of prostate cancer. 5. GERD. 6. Abdominal aortic aneurysm, they get checked regularly, is currently stable, but unknown size. PAST SURGICAL HISTORY: Include; 1. Radical prostatectomy. 2. Back surgery x4. 3. Tonsillectomy. HOME MEDICATIONS: Include; 1. Glipizide 2.5 mg p.o. b.i.d. 2. Amlodipine 5 mg daily. 3. Metoprolol succinate 50 mg p.o. daily. 4. Gabapentin 300 mg p.o. daily. 5. Omeprazole 20 mg daily. ALLERGIES: 1. Tylenol caused swollen lips and ADHESIVE BANDAGES. 2. HYDROCODONE causes swollen lips. 3. IODINATED CONTRAST. 4. SULFA. FAMILY HISTORY: Negative for clotting or bleeding disorder. No immune dysfunction, no premature cor onary artery disease and no history of significant strokes. SOCIAL HISTORY: Negative for alcohol, tobacco and drugs. He has never smoked. He is . His is at the bedside. REVIEW OF SYSTEMS: Not obtainable. PHYSICAL EXAMINATION: VITAL SIGNS: Temperature on my evaluation 98.8, pulse 101, blood pressure is 183/103, respiratory ra te 21, satting 95% on room air. GENERAL: Patient has eyes closed. He is mumbling something to verbal stimuli, but not talking coher ently. He appears to be in no acute distress. Does appear comfortable. HEENT: Normocephalic and atraumatic. His pupils are 2-3 mm and reactive to light. His eyes are dev iated upward into the right. He has no rolling or horizontal nystagmus. NECK: Supple. There is no lymphadenopathy, no JVD, no thyromegaly. He has normal carotids. I vilma ot appreciate any bruits. LUNGS: Clear to auscultation bilaterally with good air movement. Symmetrical chest excursion. No w heezes, no rales, no rhonchi. CARDIOVASCULAR: He had normal cardiac and regular to slightly bradycardic. Normal S1 and S2. No S3 or S4. I do not appreciate any murmurs. ABDOMEN: Soft, is nontender, nondistended. No masses or organomegaly. EXTREMITIES: No cyanosis, no clubbing. He has had no edema. SKIN: Warm, moist and well perfused. He has no rashes, no lesions. MUSCULOSKELETAL: Normal to inspection. Large joints appear normal. There is no evidence of inflamm ation. No palpable effusions. NEUROLOGIC: Cranial nerves are not testable. He does have the upward and rightward eye deviation wi thout nystagmus. He has increased right upper and lower extremity tone and decreased left upper and lower extremity tone. He does have a sensation appears to be intact to plantar stimulation. He does withdraw both of his feet and has downgoing toes to nail bed pressure. The patient does retract his right arm more than his left arm. The fine motor muscles of the left hand appeared to be nonfunctio romeo at the time, and retraction does come from the shoulder muscles. LABORATORY DATA: His CBC showed a white blood cell count 9.4, hemoglobin 16.1, hematocrit of 47.2, a nd platelet count is 211,000 with a normal differential. Chemistry profile: Sodium 135, potassium 4 .7, chloride 101, bicarbonate 27, BUN 13, creatinine 1.03, glucose of 213, calcium 9.7, total bilirub in is normal. AST slightly elevated at 38, liver function completely normal. CK-MB is normal at 2.2 , troponin I less than 0.010. INR is 1.1, PT 13.9, APTT of 29.9. IMAGING: Brain CT without contrast showed remote lacunar infarcts in the basal ganglia and well nikhil rcated foci of decreased attenuation in the right parietal region probably from lacunar infarcts, but no acute hemorrhage. A CT angiogram of tanana of Pandey shows a tanana of Pandey to be intact; de la cruz tigre, both anterior cerebral arteries do come off the right internal carotid and the right internal ca rotid has approximately 60%-70% stenosis. A repeat brain CT at 0730 showed no acute changes, no intracranial hemorrhaging. IMPRESSION: 1. Right middle cerebral artery distribution stroke, given the patient's change in mental status and maybe some frontal lobe involvement as well. Patient is now status post TPA. We will hold all anti platelets and blood thinners for today. No vena puncture per protocol and will do serial neuro exams . He certainly has worsened since arrival to the ICU. His respiratory status is intact. He is not having any problem handling his secretions at this point, so we will not plan intubating yet. We grecia l give him 72 hours to cover and if he does not, we will discuss placing a Dobbhoff tube at that poin t. PT, OT and ST have been consulted. We will hold off on the antiplatelets until 24 hours at which time we will start the patient on aspirin until he is able to take oral and we will ask neurology fo r their opinion. We will get echocardiogram. 2. Hypertension per protocol. We will have p.r.n. antihypertensive to keep his pressure down. 3. Diabetes mellitus type 2. The patient is n.p.o., we will place him on D5 normal saline at the me esent. We will have moderate sliding scale insulin for correction to prevent him getting hypoglycemi c. We will start him on tube feeds when we are able. 4. History of prostate cancer, no evidence of brain mets. 5. Follow up with Neurology recommendations. Greater than 45 minutes of critical care spent with the patient.
--- NOTE | 2018-07-26 16:35 | PRG ---
DATE OF SERVICE: 07/26/2018 CHIEF COMPLAINT: Acute stroke. INTERVAL HEALTH HISTORY: I was asked to see the patient as a follow up. Patient was originally seen by Dr. Carmichael last week. Question was regarding his antiplatelet therapy. Since Dr. Carmichael's vis it, patient is somewhat improved; however, he continues to have left-sided weakness, but also not mov ing his right side as much as expected. He is more responsive per the team, but he is unable to move both sides of his body. He did receive IV TPA and even though there is no hemorrhage, he is not as conversational, but he is somewhat in and out and he was able to give nursing staff and his his date of yesterday as well as today and apparently he was talking to his and he has been mo re responsive since yesterday. PREVIOUS MEDICAL HISTORY: The patient has history of CVA during this admission. PAST MEDICAL HISTORY: Diabetes, hypertension, osteoarthritis, prostate cancer, gastroesophageal refl ux disease, abdominal aortic aneurysm. PAST SURGICAL HISTORY: Radical prostatectomy, back surgery, tonsillectomy. ALLERGIES: Allergic to TYLENOL, HYDROCODONE, IODINATED CONTRAST and SULFA DRUGS. FAMILY HISTORY: Negative for similar illness. SOCIAL HISTORY: Per chart, he lives with his . REVIEW OF SYSTEMS: Unobtainable. LABORATORY DATA AND IMAGING DATA: Current laboratory reports; white count 10.4, hemoglobin 15, hemat ocrit 46.4, platelets 220. His most recent lab workup shows sodium 133, potassium 4.0, chloride 104, bicarbonate 24, BUN 11, creatinine 0.85, glucose 164 and I have reviewed his CT scan from 07/24/[address] shows low attenuation areas in upper right frontal and parietal region, inferior right fr ontal lobe compatible with areas evolving subacute infarct. No intracranial hemorrhage or midline sh ift and there is decreased attenuation in the periventricular white matter, also small old lacunar in farct. PHYSICAL EXAMINATION: VITAL SIGNS: Blood pressure was 190/96, pulse is 73, temperature 99, respiratory rate is 20. GENERAL APPEARANCE: Patient seems to be awake and lying down in the bed. He is interacting slightly with our nursing staff. NEUROLOGICAL: Higher intellectual functions. He is oriented to self and does not answer too many qu estions. Unable to talk much. He did respond to the question about his date of and was able t o give his date of our staff. Cranial nerves: Pupils are reactive. Eyes are midline. He can not follow finger accurately and motor examination. He has increased tone throughout and he withdraw s to painful stimuli bilaterally. Does not exhibit much movement on the right side of the body. Ada p tendon reflexes were absent and Babinski with extensor cerebellar and sensory cannot be examined. IMPRESSION: Patient is a 78-year-old man with right middle cerebral artery CVA. He is status post I V TPA and he had significant left-sided weakness, hemineglect and eye deviation to the right on arriv al and apparently he was not responsive at all, but seems to be more responsive at this time, but swift s not move the right side as much as expected. At this time, he needs further workup as far as the e tiology of his left-sided weakness. RECOMMENDATIONS: 1. I requested an MRI of the brain for this patient, so we can understand whether there are any jeremy tional infarcts in his case other than his right MCA infarct. 2. I advised they start him on aspirin 300 mg rectally, so we can start him on some antiplatelet age nt since it has been a few days since his initial stroke. 3. We will follow up on MRI and the patient. Consult done via telemedicine.
[2018-07-26] MEDS: Pantoprazole 40 MG VIAL IVP SCH (21:31)
[2018-07-27] MEDS: Atorvastatin Calcium 40 MG TAB PO SCH ×2 (02:41→20:52)
[2018-07-27 05:09] LABS: #Eosinphils 0.5 thou/uL (0.0-0.7); #Lymphocytes 1.9 thou/uL (1.20-3.40); #Monocytes 1.1 thou/uL (0.11-0.59); #Neutrophils 5.6 thou/uL (1.40-6.50); %Basophils 0.3 % (0.0-1.0); %Eosinophils 5.8 % (0.0-10.0); %Lymphocytes 20.8 % (21.0-51.0); %Monocytes 12.2 % (0.0-10.0); Hemoglobin 14.2 g/dL (14.0-18.0); Mean Corpuscular HGB CONC 33.3 g/dL (32.0-36.0); Mean Corpuscular Hemoglobin 30.7 pg (27.0-31.0); Mean Corpuscular Volume 92.3 fL (78.0-98.0); Mean Platelet Volume 9.1 fL (7.4-10.4); Platelet Count 193 thou/uL (130-400); RBC Distribution Width 11.8 % (11.5-14.5); Red Blood Cell (RBC) Count 4.61 mill/uL (4.70-6.10); White Blood Cell (WBC) Count 9.2 thou/uL (4.8-10.8)
[2018-07-27 05:21] LABS: Anion Gap 13 mmol/L (10-20); BUN (Urea Nitrogen) 13 mg/dL (8.4-25.7); Calc. Creatinine Clearance 108 mL/min (70-130); Calcium 8.7 mg/dL (7.8-10.44); Carbon Dioxide 21 mmol/L (23-31); Chloride 103 mmol/L (98-107); Estimated GFR-MDRD Greater than 90; Glucose 176 mg/dL (83-110); Potassium 3.8 mmol/L (3.5-5.1); Sodium 133 mmol/L (136-145)
[2018-07-27] MEDS: Insulin Regular 300 UNITS/3 ML VIAL SC PRN ×4 (06:40→22:05)
[2018-07-27] MEDS: Labetalol HCl 100 MG/20 ML VIAL SLOW IVP PRN ×2 (09:53→15:05)
--- NOTE | 2018-07-27 10:48 | PDOC.PN ---
- Subjective Encounter Start Date: 07/27/18 Encounter Start Time: 09:30 follow up for acute ischemic Right MCA distribution stroke case discussed directly with Sis MRI with large right MCA but also left sided infarcts. hemorrhage in the right large area, ASA stopped. No F/C, no N/V/D/C, no CP or SOB. Pt nonverbal, eyes open, trackinh, no following commands ROS not obtainable - Objective MAR Reviewed: Yes Vital Signs & Weight: Vital Signs (12 hours) Temp Pulse Resp BP BP Pulse Ox 07/27/18 09:53 80 182/97 H 07/27/18 08:00 98.5 F 71 20 178/83 H 93 L 07/27/18 05:01 94 L 07/27/18 03:10 98.8 F 68 18 173/93 H 94 L 07/27/18 00:15 98.5 F 67 16 158/77 H 96 Weight Admit Weight 209 lb Weight 209 lb 4 oz Most Recent Monitor Data Heart Rate from ECG 81 NIBP 157/82 NIBP BP-Mean 107 Respiration from ECG 17 SpO2 93 I&O: 07/26/18 07/27/18 07/28/18 07:59 06:59 06:59 Intake Total 770 Balance 770 Result Diagrams: 07/27/18 04:42 07/27/18 04:42 Additional Labs: Accuchecks 07/27/18 07/27/18 07/26/18 06:12 00:47 16:05 POC Glucose 174 H 165 H 161 H 07/26/18 12:16 POC Glucose 189 H Radiology Reviewed by me: Yes EKG Reviewed by me: Yes Phys Exam - Physical Examination Constitutional: NAD HEENT: PERRLA, moist MMs, sclera anicteric, oral pharynx no lesions Neck: no nodes, no JVD, supple, full ROM Respiratory: no wheezing, no rales, no rhonchi, clear to auscultation bilateral Cardiovascular: RRR, no significant murmur, no rub Gastrointestinal: soft, non-tender, no distention, positive bowel sounds Musculoskeletal: no edema left UE plegia, LLE and RLE withdraw to plantar stim. Skin: no rash, normal turgor, cap refill <2 seconds Dx/Plan (1) Acute right MCA stroke Code(s): I63.511 - CEREB INFRC D/T UNSP OCCLS OR STENOS OF RIGHT MID CEREB ART Status: Acute Comment: neurology has seen, MRI reviewed, prognosis poor. wants to take to [place] to [facility], will notify case management, ASA rectally on hold due to bleed (2) DM2 (diabetes mellitus, type 2) Status: Chronic Qualifiers: Diabetes mellitus chemical compounder helper insulin use: without chemical compounder helper use Diabetes mellitus complication status: without complication Qualified Code(s): E11.9 - Type 2 diabetes mellitus without complications (3) Left-sided weakness Code(s): R53.1 - WEAKNESS Status: Acute (4) HTN (hypertension) Code(s): I10 - ESSENTIAL (PRIMARY) HYPERTENSION Status: Chronic Qualifiers: Hypertension type: essential hypertension Qualified Code(s): I10 - Essential (primary) hypertension - Plan cont current plan of care, plan discussed w/ family, PT/OT, social professionals * . will have DFT place dnad start on TF, nutrition consult reqested. need to consult GI tomorrow for PEG on Saturday
[2018-07-27] MEDS ORDERED: Carvedilol 3.125 MG TAB PER TUBE SCH (11:00)
--- NOTE | 2018-07-27 11:12 | MRI ---
MRI OF INOCENCIO PERFORMED WITHOUT CONTRAST ENHANCEMENT: HISTORY: Patient with right-sided stroke, followup. COMPARISON: CT examinations of 07/23/2018 and 07/24/2018. FINDINGS: There is some generalized ventricular and sulcal prominence. There is no midline shift. On the diff usion weighted sequence, there are multiple areas of restricted diffusion consistent with infarct. T he largest of these is over the right frontal convexity, but there are also areas within the junction of the temporoparietal occipital junction and in the left periventricular location which would be mo re of areas of watershed-type infarct. The ones on the left are between the anterior middle cerebral artery distributions. There is a large area of a blooming artifact seen on the gradient echo sequence related to the right frontal convexity infarct. This is compatible with blood products. This area measures approximately 4 cm in size suggesting there is some element of hemorrhage. It would probably be helpful to obtain a CT to evaluate this. Some minimal hemosiderin deposition is seen over the left frontoparietal con vexity. There are no cerebellar lesions or brainstem abnormalities demonstrated. IMPRESSION: Multiple areas of infarct seen over both cerebral hemispheres, most of which are in more of a watersh ed-type distribution. There has been hemorrhagic conversion of the right frontal infarct. CT may be helpful in evaluating this and for followup. These findings were discussed with Mary, the patient' s nurse, and she will relay this to Dr. Busch. POS: [facility]
[2018-07-27] MEDS: Sodium Chloride 0.9% 1,000 ML IV SCH (13:13)
--- NOTE | 2018-07-27 16:58 | CT ---
CT BRAIN: HISTORY: Hemorrhagic conversion of CVA. COMPARISON: 07/24/2018 TECHNIQUE: Noncontrast enhanced CT images of the brain obtained on 07/27/2018. FINDINGS: CT images of the brain demonstrate an area of hypodensity in the right superior frontal gyrus of the right frontal lobe. There is interval development of an area of increased density, seen on axial zeina ges 20, 21, 22, 23, 24, and 25. This is concerning for an area of intraparenchymal hemorrhage. Additional areas of hypodensity have also developed in the left high frontal lobe, as well as in the right parietal lobe and the inferior right frontal lobe. These are compatible with visualization of developing strokes. IMPRESSION: Multiple intracranial acute strokes with an area of hemorrhagic conversion of an area of larger strok e at the medial aspect of the right frontal lobe. POS: [facility]
[2018-07-27] MEDS: Carvedilol 6.25 MG TAB PER TUBE SCH (17:58)
--- NOTE | 2018-07-27 18:03 | PRG ---
DATE OF SERVICE: 07/27/2018 CHIEF COMPLAINT: CVA. INTERVAL HISTORY: The patient has remained somewhat responsive, but is still having some difficulty moving the right side. Repeat MRI was discussed with the radiologist yesterday and it shows infarcts bilaterally and not just on one side. LABORATORY DATA AND IMAGING DATA: White count 9.2, hemoglobin 14.2, hematocrit 42.5, platelets 193, sodium 133, potassium 3.8, chloride 103, bicarbonate 21, BUN 13, creatinine 0.75, glucose 176 and MRI of the brain was completed yesterday and MRI shows multiple areas of infarct over both cerebral misti spheres, most of which are in more of a watershed distribution. There has been hemorrhagic conversio n of the right frontal infarct and there is also a large area of blooming artifact in the gradient ec ho sequence related to the right frontal convexity infarct. This is compatible with blood products. Area measures approximately 4 cm in size and he also has multiple areas of restricted diffusion cons istent with infarct, largest of these is over the right frontal complexity, but he also has areas of infarct in the temporal parietooccipital junction and in the left periventricular matter which could be more of a watershed. The ones on the left are between anterior middle cerebral artery distributio ns and in addition to this, his stroke workup has been completed including echocardiogram as noted ye sterday. PHYSICAL EXAMINATION: VITAL SIGNS: Blood pressure 182/97, pulse 80 and temperature 98.5. GENERAL APPEARANCE: The patient is in the bed, not as responsive as I would like to see him, but swift s seems to respond to stimulus. Does state his name. Cranial nerves: He has right gaze preference. Motor examination; increased tone on the right side. Does withdraw to stimuli, but does not move h is extremities spontaneously. IMPRESSION: Patient with bilateral cerebral infarcts with the right MCA distribution infarct with he morrhagic conversion and left-sided watershed infarcts in different areas, mostly anterior and middle cerebral artery territories. The patient has not been moving his right side and this could be expla ined by the infarcts in the left TRENT, MCA territories. The patient needs further care as far [facility] concerned. RECOMMENDATIONS: 1. I discussed this case with his and also MRI was reviewed with his with Dr. Ryan's hel p as well. I do think the prognosis for significant motor recovery remains guarded at this time. Wi fe does want to take him to [facility] in [place] for rehabilitation and we will plan to do so and Dr. Parker er will discuss this with case management. 2. Please hold aspirin for now due to hemorrhagic conversion. 3. I will request a CT of the head and I will come back, we will see this patient again tomorrow.
[2018-07-27] MEDS: Pantoprazole 40 MG VIAL IVP SCH (20:52)
[2018-07-28] MEDS: Sodium Chloride 0.9% 1,000 ML IV SCH ×2 (04:57→18:05)
[2018-07-28] MEDS: Insulin Regular 300 UNITS/3 ML VIAL SC PRN ×2 (06:26→18:49)
[2018-07-28] MEDS: Carvedilol 6.25 MG TAB PER TUBE SCH ×2 (09:10→18:07)
--- NOTE | 2018-07-28 10:32 | PDOC.PN ---
- Subjective Encounter Start Date: 07/28/18 Encounter Start Time: 10:30 Subjective: calm, no distress - Objective MAR Reviewed: Yes Vital Signs & Weight: Vital Signs (12 hours) Temp Pulse Resp BP BP Pulse Ox 07/28/18 09:10 159/79 H 07/28/18 07:53 98.9 F 60 18 159/79 H 97 07/28/18 07:20 96 07/28/18 04:47 97.3 F L 64 16 154/68 H 94 L 07/28/18 00:43 98.2 F 67 16 162/72 H 94 L 07/28/18 00:06 96 Weight Admit Weight 209 lb Weight 209 lb Most Recent Monitor Data Heart Rate from ECG 81 NIBP 157/82 NIBP BP-Mean 107 Respiration from ECG 17 SpO2 93 I&O: 07/27/18 07/28/18 07/29/18 06:59 06:59 06:59 Intake Total 1918 Balance 1918 Result Diagrams: 07/27/18 04:42 07/27/18 04:42 Additional Labs: Accuchecks 07/28/18 07/27/18 07/27/18 06:22 22:03 17:14 POC Glucose 167 H 232 H 206 H 07/27/18 12:26 POC Glucose 197 H Phys Exam - Physical Examination Neck: no JVD Respiratory: clear to auscultation bilateral Cardiovascular: RRR, no significant murmur Gastrointestinal: soft, positive bowel sounds Musculoskeletal: no edema dense left hemiplegia Dx/Plan (1) Acute right MCA stroke Code(s): I63.511 - CEREB INFRC D/T UNSP OCCLS OR STENOS OF RIGHT MID CEREB ART Status: Acute Comment: neurology has seen, MRI reviewed, prognosis poor. wants to take [place] [facility] rehab, will notify case management, ASA rectally on hold due to bleed (2) Left-sided weakness Code(s): R53.1 - WEAKNESS Status: Acute (3) DM2 (diabetes mellitus, type 2) Status: Chronic Qualifiers: Diabetes mellitus exterminator insulin use: without exterminator use Diabetes mellitus complication status: without complication Qualified Code(s): E11.9 - Type 2 diabetes mellitus without complications (4) HTN (hypertension) Code(s): I10 - ESSENTIAL (PRIMARY) HYPERTENSION Status: Chronic Qualifiers: Hypertension type: essential hypertension Qualified Code(s): I10 - Essential (primary) hypertension - Plan rehab screen -: ASA held due to hemorrhagic conversion of infarct -: cont statin , b-ismael * .
--- NOTE | 2018-07-28 12:19 | PRG ---
DATE OF SERVICE: 07/28/2018 CHIEF COMPLAINT: Acute stroke. INTERVAL HISTORY: The patient is more alert and talkative today. 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 Sometimes, he drifts off and does not respond when the topic is not of interest to him and current reports, his CT of the head was performed yesterday and the repor t shows multiple intracranial acute strokes with an area of hemorrhagic conversion of an area of larg er stroke at the medial aspect of the right frontal lobe and as seen yesterday, he has bilateral infa rcts. LABORATORY DATA: His white count is 9.2, hemoglobin 14.2, hematocrit 42.5, platelets 193,000. Chemi stry, sodium 133, carbon dioxide 21, potassium 3.8, chloride 103, anion gap 13, BUN 13, creatinine 0. 75, glucose 176. PHYSICAL EXAMINATION: VITAL SIGNS: His blood pressure 159/79, temperature 98.9, pulse is 60. GENERAL APPEARANCE: Well-built, well-nourished man, who is comfortable in bed. 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 He seems to inte ract more today compared to yesterday. Cranial nerves, left facial droop. Some improvement in the e xtraocular movements, but still has right gaze preference. Tongue is midline. Motor examination, bu lk is normal. Tone is increased in the right upper and lower extremities, flaccid tone in the left s [place]. Strength exam, he does move his toes to stimulus, but has very poor strength in the left upper extremity at 0/5, right is also at 1-2/5. IMPRESSION: The patient is a 78-year-old man with a right middle cerebral artery distribution infarc t with hemorrhagic conversion and left watershed infarct in the anterior cerebral artery, middle cere bral artery territory. At this time, he has bilateral limb weakness due to these infarct unfortunate ly; however, he seems to be more alert today and talking better. RECOMMENDATIONS: Please coordinate with [facility] and see if they are able to take him to that facility when medically stable. Please call Neurology if you have any further questions.
[2018-07-28] MEDS: Atorvastatin Calcium 40 MG TAB PO SCH (21:14)
[2018-07-28] MEDS: Pantoprazole 40 MG VIAL IVP SCH (21:15)
[2018-07-29] MEDS: Labetalol HCl 100 MG/20 ML VIAL SLOW IVP PRN ×2 (03:59→12:00)
[2018-07-29] MEDS: Insulin Regular 300 UNITS/3 ML VIAL SC PRN ×4 (06:23→21:27)
[2018-07-29] MEDS: Carvedilol 6.25 MG TAB PER TUBE SCH ×2 (08:39→17:27)
[2018-07-29] MEDS: Sodium Chloride 0.9% 1,000 ML IV SCH (10:04)
--- NOTE | 2018-07-29 11:33 | PDOC.PN ---
- Subjective Encounter Start Date: 07/29/18 Encounter Start Time: 11:31 Subjective: no complaints - Objective MAR Reviewed: Yes Vital Signs & Weight: Vital Signs (12 hours) Temp Pulse Resp BP BP Pulse Ox 07/29/18 08:39 172/84 H 07/29/18 07:44 97 07/29/18 07:30 98.6 F 63 14 172/84 H 97 07/29/18 07:29 98.6 F 63 14 172/84 H 97 07/29/18 05:50 178/83 H 07/29/18 03:59 66 184/88 H 07/29/18 03:46 97.8 F 66 20 184/88 H 94 L 07/29/18 00:47 96 07/29/18 00:42 98.3 F 61 18 149/70 H 95 Weight Admit Weight 209 lb Weight 210 lb 9.6 oz Most Recent Monitor Data Heart Rate from ECG 81 NIBP 157/82 NIBP BP-Mean 107 Respiration from ECG 17 SpO2 93 I&O: 07/28/18 07/29/18 07/30/18 06:59 06:59 06:59 Intake Total 1919 250 Balance 1919 250 Result Diagrams: 07/27/18 04:42 07/27/18 04:42 Additional Labs: Accuchecks 07/29/18 07/29/18 07/28/18 10:53 05:47 18:05 POC Glucose 187 H 170 H 196 H Phys Exam - Physical Examination Neck: no JVD Respiratory: clear to auscultation bilateral Cardiovascular: RRR, no significant murmur Gastrointestinal: soft, positive bowel sounds Musculoskeletal: no edema Dx/Plan (1) Acute right MCA stroke Code(s): I63.511 - CEREB INFRC D/T UNSP OCCLS OR STENOS OF RIGHT MID CEREB ART Status: Acute Comment: neurology has seen, MRI reviewed, prognosis poor. wants to take to [place] to [facility] rehab, will notify case management, ASA rectally on hold due to bleed (2) Left-sided weakness Code(s): R53.1 - WEAKNESS Status: Acute (3) DM2 (diabetes mellitus, type 2) Status: Chronic Qualifiers: Diabetes mellitus termite technician insulin use: without senior care use Diabetes mellitus complication status: without complication Qualified Code(s): E11.9 - Type 2 diabetes mellitus without complications (4) HTN (hypertension) Code(s): I10 - ESSENTIAL (PRIMARY) HYPERTENSION Status: Chronic Qualifiers: Hypertension type: essential hypertension Qualified Code(s): I10 - Essential (primary) hypertension - Plan cont current tx, neuro note appeciated, rehab in progress * .
[2018-07-29] MEDS: Atorvastatin Calcium 40 MG TAB PO SCH (21:27)
[2018-07-29] MEDS: Pantoprazole 40 MG VIAL IVP SCH (21:27)
[2018-07-30] MEDS: Sodium Chloride 0.9% 1,000 ML IV SCH ×2 (01:22→16:50)
[2018-07-30] MEDS: Insulin Regular 300 UNITS/3 ML VIAL SC PRN ×3 (06:36→16:49)
[2018-07-30] MEDS: Carvedilol 6.25 MG TAB PER TUBE SCH ×2 (09:59→16:51)
--- NOTE | 2018-07-30 10:17 | PDOC.PN ---
- Subjective Encounter Start Date: 07/30/18 Encounter Start Time: 10:15 Subjective: alert, no complaints - Objective MAR Reviewed: Yes Vital Signs & Weight: Vital Signs (12 hours) Temp Pulse Resp BP BP Pulse Ox 07/30/18 09:59 170/94 H 07/30/18 07:53 97.9 F 62 20 190/87 H 94 L 07/30/18 04:00 98.2 F 61 18 176/85 H 93 L 07/30/18 01:03 94 L 07/30/18 00:00 97.8 F 61 18 161/64 H 94 L Weight Admit Weight 209 lb Weight 210 lb 12.8 oz Most Recent Monitor Data Heart Rate from ECG 81 NIBP 157/82 NIBP BP-Mean 107 Respiration from ECG 17 SpO2 93 I&O: 07/29/18 07/30/18 07/31/18 06:59 06:59 06:59 Intake Total 250 1921 Balance 250 1921 Result Diagrams: 07/27/18 04:42 07/27/18 04:42 Additional Labs: Accuchecks 07/30/18 07/29/18 07/29/18 06:01 20:12 16:54 POC Glucose 169 H 159 H 206 H 07/29/18 10:53 POC Glucose 187 H Phys Exam - Physical Examination Neck: no JVD Respiratory: clear to auscultation bilateral Cardiovascular: RRR, no significant murmur Gastrointestinal: soft, positive bowel sounds Musculoskeletal: edema present L hemiplegia, R neglect Dx/Plan (1) Acute right MCA stroke Code(s): I63.511 - CEREB INFRC D/T UNSP OCCLS OR STENOS OF RIGHT MID CEREB ART Status: Acute Comment: neurology has seen, MRI reviewed, prognosis poor. wants to take [place] [facility] rehab, will notify case management, ASA rectally on hold due to bleed (2) Left-sided weakness Code(s): R53.1 - WEAKNESS Status: Acute (3) DM2 (diabetes mellitus, type 2) Status: Chronic Qualifiers: Diabetes mellitus chcf insulin use: without chcf use Diabetes mellitus complication status: without complication Qualified Code(s): E11.9 - Type 2 diabetes mellitus without complications (4) HTN (hypertension) Code(s): I10 - ESSENTIAL (PRIMARY) HYPERTENSION Status: Chronic Qualifiers: Hypertension type: essential hypertension Qualified Code(s): I10 - Essential (primary) hypertension - Plan cont current plan of care, PT/OT off asa due to hemorrhagic conversion -: reinstitute amlodipine, lasix -: cont accu/ss/ reintroduce glpizide * .
[2018-07-30] MEDS: Labetalol HCl 100 MG/20 ML VIAL SLOW IVP PRN ×2 (11:47→20:10)
[2018-07-30] MEDS: glipiZIDE 5 MG TAB PO SCH (16:51)
[2018-07-30] MEDS: Atorvastatin Calcium 40 MG TAB PO SCH (20:06)
[2018-07-31] MEDS: Labetalol HCl 100 MG/20 ML VIAL SLOW IVP PRN ×3 (00:04→12:36)
[2018-07-31] MEDS: Insulin Regular 300 UNITS/3 ML VIAL SC PRN (06:25)
[2018-07-31] MEDS: glipiZIDE 5 MG TAB PO SCH ×2 (08:22→17:22)
[2018-07-31] MEDS: Carvedilol 6.25 MG TAB PER TUBE SCH ×2 (08:23→17:23)
[2018-07-31] MEDS: Amlodipine 5 MG TAB PO SCH (08:23)
[2018-07-31] MEDS: Furosemide 20 MG TAB PO SCH (08:23)
--- NOTE | 2018-07-31 09:54 | PDOC.PN ---
- Subjective Encounter Start Date: 07/31/18 Encounter Start Time: 09:51 Subjective: still weak on left - Objective MAR Reviewed: Yes Vital Signs & Weight: Vital Signs (12 hours) Temp Pulse Resp BP BP Pulse Ox 07/31/18 08:36 63 200/102 H 07/31/18 08:23 63 181/86 H 07/31/18 04:00 98.5 F 63 24 H 160/76 H 92 L 07/31/18 00:04 61 181/86 H 07/30/18 23:54 97.9 F 60 16 181/86 H 92 L Weight Admit Weight 209 lb Weight 213 lb 9.6 oz Most Recent Monitor Data Heart Rate from ECG 81 NIBP 157/82 NIBP BP-Mean 107 Respiration from ECG 17 SpO2 93 I&O: 07/30/18 07/31/18 08/01/18 06:59 06:59 06:59 Intake Total 1 1158 Balance 1921 1158 Result Diagrams: 07/27/18 04:42 07/27/18 04:42 Additional Labs: Accuchecks 07/31/18 07/30/18 07/30/18 05:46 20:45 16:25 POC Glucose 151 H 139 H 160 H 07/30/18 10:35 POC Glucose 219 H Phys Exam - Physical Examination Neck: no JVD Respiratory: clear to auscultation bilateral Cardiovascular: RRR, no significant murmur Gastrointestinal: soft, positive bowel sounds L hemiplgia Dx/Plan (1) Acute right MCA stroke Code(s): I63.511 - CEREB INFRC D/T UNSP OCCLS OR STENOS OF RIGHT MID CEREB ART Status: Acute Comment: neurology has seen, MRI reviewed, prognosis poor. [place] [facility], will notify case management, ASA rectally on hold due to bleed (2) Left-sided weakness Code(s): R53.1 - WEAKNESS Status: Acute (3) DM2 (diabetes mellitus, type 2) Status: Chronic Qualifiers: Diabetes mellitus long-term insulin use: without long-term use Diabetes mellitus complication status: without complication Qualified Code(s): E11.9 - Type 2 diabetes mellitus without complications (4) HTN (hypertension) Code(s): I10 - ESSENTIAL (PRIMARY) HYPERTENSION Status: Chronic Qualifiers: Hypertension type: essential hypertension Qualified Code(s): I10 - Essential (primary) hypertension (5) Hemiplegia affecting left nondominant side Code(s): G81.94 - HEMIPLEGIA, UNSPECIFIED AFFECTING LEFT NONDOMINANT SIDE Status: Acute - Plan plan discussed w/ family, PT/OT cont statin, BP control, no antoplatelet tx- hemorrhagic conversion * .
[2018-07-31] MEDS: Sodium Chloride 0.9% 1,000 ML IV SCH ×2 (12:13→20:34)
[2018-07-31] MEDS: Atorvastatin Calcium 40 MG TAB PO SCH (20:30)
[2018-08-01] MEDS: Sodium Chloride 0.9% 1,000 ML IV SCH (01:54)
[2018-08-01] MEDS: Labetalol HCl 100 MG/20 ML VIAL SLOW IVP PRN ×2 (04:26→08:53)
[2018-08-01] MEDS: glipiZIDE 5 MG TAB PO SCH ×2 (08:46→16:28)
[2018-08-01] MEDS: Carvedilol 6.25 MG TAB PER TUBE SCH ×2 (08:48→16:27)
[2018-08-01] MEDS: Amlodipine 5 MG TAB PO SCH (08:50)
[2018-08-01] MEDS: Furosemide 20 MG TAB PO SCH (08:51)
--- NOTE | 2018-08-01 10:09 | PDOC.PN ---
- Subjective Encounter Start Date: 08/01/18 Encounter Start Time: 10:07 Subjective: alert, no C/O - Objective MAR Reviewed: Yes Vital Signs & Weight: Vital Signs (12 hours) Temp Pulse Resp BP BP Pulse Ox 08/01/18 08:53 63 08/01/18 08:50 63 08/01/18 08:48 171/88 H 08/01/18 07:54 99.3 F 63 20 171/88 H 92 L 08/01/18 04:26 68 08/01/18 03:45 97.9 F 68 22 H 195/89 H 92 L 07/31/18 23:35 98.3 F 67 18 172/81 H 92 L Weight Admit Weight 209 lb Weight 214 lb 1.6 oz Most Recent Monitor Data Heart Rate from ECG 81 NIBP 157/82 NIBP BP-Mean 107 Respiration from ECG 17 SpO2 93 I&O: 07/31/18 08/01/18 08/02/18 06:59 06:59 06:59 Intake Total 1158 1260 Balance 1158 1260 Result Diagrams: 07/27/18 04:42 07/27/18 04:42 Additional Labs: Accuchecks 08/01/18 07/31/18 07/31/18 06:23 21:02 16:34 POC Glucose 126 H 150 H 150 H 07/31/18 10:54 POC Glucose 150 H Phys Exam - Physical Examination Neck: no JVD Respiratory: clear to auscultation bilateral Cardiovascular: RRR, no significant murmur Gastrointestinal: soft, positive bowel sounds Musculoskeletal: no edema L hemiplegia Dx/Plan (1) Acute right MCA stroke Code(s): I63.511 - CEREB INFRC D/T UNSP OCCLS OR STENOS OF RIGHT MID CEREB ART Status: Acute Comment: neurology has seen, MRI reviewed, prognosis poor. wants to take [place] to [facility] rehab, will notify case management, ASA rectally on hold due to bleed (2) Left-sided weakness Code(s): R53.1 - WEAKNESS Status: Acute (3) DM2 (diabetes mellitus, type 2) Status: Chronic Qualifiers: Diabetes mellitus longterm insulin use: without terminal carman use Diabetes mellitus complication status: without complication Qualified Code(s): E11.9 - Type 2 diabetes mellitus without complications (4) HTN (hypertension) Code(s): I10 - ESSENTIAL (PRIMARY) HYPERTENSION Status: Chronic Qualifiers: Hypertension type: essential hypertension Qualified Code(s): I10 - Essential (primary) hypertension (5) Hemiplegia affecting left nondominant side Code(s): G81.94 - HEMIPLEGIA, UNSPECIFIED AFFECTING LEFT NONDOMINANT SIDE Status: Acute - Plan cont current plan of care, plan discussed w/ family, PT/OT obtain FU CT of brain for hemohagic conversion * .
--- NOTE | 2018-08-01 12:11 | CT ---
CT HEAD NONCONTRAST: INDICATION: Hemorrhagic infarction, followup. COMPARISON: Reference is made to 07/27/2018 CT. FINDINGS: Redemonstration of prominence of the region of encephalomalacia of the right cerebral hemisphere cent ered within the right frontal lobe. There is associated interspersed hemorrhage, predominantly subar achnoid in distribution. There is ex vacuo dilatation of the right lateral ventricle. Multifocal pu nctate hypoattenuation indicates scattered lacunar infarctions of each cerebral hemisphere, grossly s table. IMPRESSION: Redemonstration of intracranial hemorrhage related to infarction centered about the anterior right ce rebral hemisphere. Continued followup to resolution is recommended. POS: [facility]
[2018-08-01 13:35] VITALS: BMI 29.8
[2018-08-01] MEDS: Insulin Regular 300 UNITS/3 ML VIAL SC PRN ×2 (17:55→21:39)
[2018-08-01] MEDS: Atorvastatin Calcium 40 MG TAB PO SCH (20:35)
[2018-08-01] MEDS: Acetaminophen 500 MG TAB PO PRN (20:53)
[2018-08-02] MEDS: Sodium Chloride 0.9% 1,000 ML IV SCH ×2 (01:03→15:25)
[2018-08-02] MEDS: glipiZIDE 5 MG TAB PO SCH ×2 (08:35→17:57)
[2018-08-02] MEDS: Carvedilol 6.25 MG TAB PER TUBE SCH ×2 (08:35→17:57)
[2018-08-02] MEDS: Amlodipine 5 MG TAB PO SCH (08:35)
[2018-08-02] MEDS: Furosemide 20 MG TAB PO SCH (08:35)
[2018-08-02] MEDS: Insulin Regular 300 UNITS/3 ML VIAL SC PRN ×2 (11:28→17:57)
--- NOTE | 2018-08-02 14:33 | PDOC.PN ---
- Subjective Encounter Start Date: 08/02/18 Encounter Start Time: 01:10 Subjective: COMPLAINING OF RIB PAIN s/p FALL AT HOME. CONFUSED FOR MOST PART - Objective MAR Reviewed: Yes Vital Signs & Weight: Vital Signs (12 hours) Temp Pulse Resp BP BP Pulse Ox 08/02/18 12:45 97.8 F 67 18 145/89 H 93 L 08/02/18 08:35 62 167/88 H 08/02/18 08:30 92 L 08/02/18 07:44 98.2 F 62 18 167/88 H 92 L 08/02/18 04:00 98.4 F 65 16 162/80 H 92 L Weight Admit Weight 209 lb Weight 210 lb 1.6 oz Most Recent Monitor Data Heart Rate from ECG 81 NIBP 157/82 NIBP BP-Mean 107 Respiration from ECG 17 SpO2 93 I&O: 08/01/18 08/02/18 08/03/18 06:59 06:59 06:59 Intake Total 1260 2210 Balance 1260 2210 Result Diagrams: 07/27/18 04:42 07/27/18 04:42 Additional Labs: Accuchecks 08/02/18 08/02/18 08/01/18 11:03 05:43 20:45 POC Glucose 194 H 166 H 206 H 08/01/18 16:41 POC Glucose 194 H Radiology Reviewed by me: Yes (INTRACEREBRAL BLEED ON CTH) Phys Exam - Physical Examination HEENT: PERRLA, moist MMs, sclera anicteric, TM's clear, oral pharynx no lesions , 2+ tonsils Neck: no nodes, no JVD, supple, full ROM Respiratory: no wheezing, no rales, no rhonchi, clear to auscultation bilateral Cardiovascular: RRR, no significant murmur, no rub, gallop, irregular Gastrointestinal: soft, non-tender, no distention, positive bowel sounds Musculoskeletal: edema present LEFT LOWER RIBS TENDER ON PALPATION CANNOT MOVE LEFT SIDE, CONFUSED, NOT AGITATED Deviation from normal: BRUISE ON THE LEFT CHEECK, HEALING Dx/Plan (1) Acute right MCA stroke Code(s): I63.511 - CEREB INFRC D/T UNSP OCCLS OR STENOS OF RIGHT MID CEREB ART Status: Acute Comment: neurology has seen, MRI reviewed, prognosis poor. wants to take to [place] to [facility], will notify case management, ASA rectally on hold due to bleed (2) Hemiplegia affecting left nondominant side Code(s): G81.94 - HEMIPLEGIA, UNSPECIFIED AFFECTING LEFT NONDOMINANT SIDE Status: Acute Qualifiers: Cerebrovascular disease type: cerebral infarction (3) Left-sided weakness Code(s): R53.1 - WEAKNESS Status: Acute Plan: pt/ot/ [facility] [place] [facility] (4) DM2 (diabetes mellitus, type 2) Status: Chronic Qualifiers: Diabetes mellitus oysterman insulin use: without usp use Diabetes mellitus complication status: without complication Qualified Code(s): E11.9 - Type 2 diabetes mellitus without complications (5) HTN (hypertension) Code(s): I10 - ESSENTIAL (PRIMARY) HYPERTENSION Status: Chronic Qualifiers: Hypertension type: essential hypertension Qualified Code(s): I10 - Essential (primary) hypertension - Plan * .
[2018-08-02] MEDS: Acetaminophen 500 MG TAB PO PRN (21:17)
[2018-08-02] MEDS: Atorvastatin Calcium 40 MG TAB PO SCH (21:17)
[2018-08-03] MEDS: Sodium Chloride 0.9% 1,000 ML IV SCH ×2 (06:39→22:27)
[2018-08-03] MEDS: glipiZIDE 5 MG TAB PO SCH ×2 (08:39→16:43)
[2018-08-03] MEDS: Carvedilol 6.25 MG TAB PER TUBE SCH ×2 (08:41→16:45)
[2018-08-03] MEDS: Amlodipine 5 MG TAB PO SCH (08:41)
[2018-08-03] MEDS: Furosemide 20 MG TAB PO SCH (08:42)
[2018-08-03] MEDS: Acetaminophen 500 MG TAB PO PRN ×2 (11:14→21:50)
[2018-08-03] MEDS: metroNIDAZOLE 500 MG in Premix Bag 1 BAG IVPB SCH ×2 (11:14→17:43)
[2018-08-03] MEDS: Insulin Regular 300 UNITS/3 ML VIAL SC PRN ×2 (11:15→22:26)
[2018-08-03] MEDS ORDERED: metroNIDAZOLE 500 MG in Syringe 0 ML IVPB SCH (14:00)
--- NOTE | 2018-08-03 14:02 | PDOC.PN ---
- Subjective Encounter Start Date: 08/03/18 Encounter Start Time: 09:30 Subjective: more responsive today. Diarrhea past 2 days has stopped since last night - Objective MAR Reviewed: Yes Vital Signs & Weight: Vital Signs (12 hours) Temp Pulse Resp BP BP Pulse Ox 08/03/18 11:55 98.1 F 60 20 138/57 L 99 08/03/18 08:41 60 168/90 H 08/03/18 08:00 94 L 08/03/18 07:55 98.4 F 60 20 168/90 H 94 L 08/03/18 04:00 97.8 F 61 19 163/89 H 91 L Weight Admit Weight 209 lb Weight 210 lb 1.6 oz Most Recent Monitor Data Heart Rate from ECG 81 NIBP 157/82 NIBP BP-Mean 107 Respiration from ECG 17 SpO2 93 I&O: 08/02/18 08/03/18 08/04/18 06:59 06:59 06:59 Intake Total 2210 2177 90 Balance 2210 2177 90 Result Diagrams: 07/27/18 04:42 07/27/18 04:42 Additional Labs: Accuchecks 08/03/18 08/02/18 08/02/18 06:00 20:50 17:00 POC Glucose 140 H 147 H 199 H 08/02/18 11:03 POC Glucose 194 H Phys Exam - Physical Examination HEENT: PERRLA, moist MMs, sclera anicteric, TM's clear, oral pharynx no lesions , 2+ tonsils Neck: no nodes, no JVD, supple, full ROM Respiratory: no wheezing, no rales, no rhonchi, wheezing present, clear to auscultation bilateral Cardiovascular: RRR, no significant murmur, no rub, gallop, irregular Gastrointestinal: soft, non-tender, no distention, positive bowel sounds Musculoskeletal: no edema, pulses present cannot move left side Deviation from normal: oriented X2 Dx/Plan (1) Acute right MCA stroke Code(s): I63.511 - CEREB INFRC D/T UNSP OCCLS OR STENOS OF RIGHT MID CEREB ART Status: Acute Comment: neurology has seen, MRI reviewed, prognosis poor. wants to take [place] [facility], will notify case management, ASA rectally on hold due to bleed (2) Hemiplegia affecting left nondominant side Code(s): G81.94 - HEMIPLEGIA, UNSPECIFIED AFFECTING LEFT NONDOMINANT SIDE Status: Acute Qualifiers: Cerebrovascular disease type: cerebral infarction (3) Left-sided weakness Code(s): R53.1 - WEAKNESS Status: Acute (4) DM2 (diabetes mellitus, type 2) Status: Chronic Qualifiers: Diabetes mellitus ferry terminal agent insulin use: without long-term use Diabetes mellitus complication status: without complication Qualified Code(s): E11.9 - Type 2 diabetes mellitus without complications (5) HTN (hypertension) Code(s): I10 - ESSENTIAL (PRIMARY) HYPERTENSION Status: Chronic Qualifiers: Hypertension type: essential hypertension Qualified Code(s): I10 - Essential (primary) hypertension - Plan Diarrhea resolved. C-Diff negative. Stool studies to be followed up -: and stop Metro if cx are negative and symptoms has resolved * .
[2018-08-03] MEDS: Atorvastatin Calcium 40 MG TAB PO SCH (21:50)
[2018-08-04] MEDS: metroNIDAZOLE 500 MG in Premix Bag 1 BAG IVPB SCH ×3 (01:56→17:23)
[2018-08-04 05:07] LABS: Anion Gap 12 mmol/L (10-20); BUN (Urea Nitrogen) 8 mg/dL (8.4-25.7); Calc. Creatinine Clearance 119 mL/min (70-130); Calcium 8.6 mg/dL (7.8-10.44); Carbon Dioxide 24 mmol/L (23-31); Chloride 103 mmol/L (98-107); Estimated GFR-MDRD Greater than 90; Glucose 134 mg/dL (83-110); Sodium 136 mmol/L (136-145)
[2018-08-04] MEDS: Acetaminophen 500 MG TAB PO PRN (07:51)
[2018-08-04] MEDS: Carvedilol 6.25 MG TAB PER TUBE SCH (07:52)
[2018-08-04] MEDS: Amlodipine 5 MG TAB PO SCH (08:02)
[2018-08-04] MEDS: glipiZIDE 5 MG TAB PO SCH ×2 (08:02→17:25)
[2018-08-04] MEDS ORDERED: Potassium Chloride 20 MEQ TAB PO SCH (10:00)
[2018-08-04] MEDS: Furosemide 20 MG TAB PO SCH (10:06)
--- NOTE | 2018-08-04 11:02 | PDOC.PN ---
- Subjective Encounter Start Date: 08/04/18 Encounter Start Time: 11:01 Subjective: alert,appropriate - Objective MAR Reviewed: Yes Vital Signs & Weight: Vital Signs (12 hours) Temp Pulse Resp BP BP Pulse Ox 08/04/18 08:02 62 194/88 H 08/04/18 07:52 194/88 H 08/04/18 07:33 97.7 F 65 20 194/96 H 92 L 08/04/18 03:47 97.7 F 54 L 14 166/69 H 99 Weight Admit Weight 209 lb Weight 210 lb 1.6 oz Most Recent Monitor Data Heart Rate from ECG 81 NIBP 157/82 NIBP BP-Mean 107 Respiration from ECG 17 SpO2 93 I&O: 08/03/18 08/04/18 08/05/18 06:59 06:59 06:59 Intake Total 2177 4390 360 Balance 2177 4390 360 Result Diagrams: 07/27/18 04:42 08/04/18 04:22 Additional Labs: Accuchecks 08/04/18 08/03/18 08/03/18 06:30 21:57 16:45 POC Glucose 141 H 164 H 125 H 08/03/18 10:42 POC Glucose 229 H Phys Exam - Physical Examination Neck: no JVD Respiratory: clear to auscultation bilateral Cardiovascular: RRR, no significant murmur Gastrointestinal: soft, positive bowel sounds Musculoskeletal: edema present left hemiplegia, R neglect Dx/Plan (1) Acute right MCA stroke Code(s): I63.511 - CEREB INFRC D/T UNSP OCCLS OR STENOS OF RIGHT MID CEREB ART Status: Acute Comment: neurology has seen, MRI reviewed, prognosis poor. wants to take [place] to [facility] rehab, will notify case management, ASA rectally on hold due to bleed (2) Left-sided weakness Code(s): R53.1 - WEAKNESS Status: Acute (3) DM2 (diabetes mellitus, type 2) Status: Chronic Qualifiers: Diabetes mellitus lap hand tool insulin use: without half-way use Diabetes mellitus complication status: without complication Qualified Code(s): E11.9 - Type 2 diabetes mellitus without complications (4) HTN (hypertension) Code(s): I10 - ESSENTIAL (PRIMARY) HYPERTENSION Status: Chronic Qualifiers: Hypertension type: essential hypertension Qualified Code(s): I10 - Essential (primary) hypertension (5) Hemiplegia affecting left nondominant side Code(s): G81.94 - HEMIPLEGIA, UNSPECIFIED AFFECTING LEFT NONDOMINANT SIDE Status: Acute Qualifiers: Cerebrovascular disease type: cerebral infarction - Plan rpt CT brain again demonstates hemorrhagic conversion, -: no adverse change- cont off antiplatelett ty -: cont PT/OT rehab pending -: add lisinopril for BP control * .
[2018-08-04] MEDS: Insulin Regular 300 UNITS/3 ML VIAL SC PRN (11:11)
[2018-08-04] MEDS: Sodium Chloride 0.9% 1,000 ML IV SCH (11:14)
[2018-08-04] MEDS: Lisinopril 5 MG TAB PO SCH (11:15)
--- NOTE | 2018-08-04 16:11 | EKG ---
Test Reason : Blood Pressure : / mmHG Vent. Rate : 076 BPM Atrial Rate : 076 BPM P-R Int : 164 ms QRS Dur : 088 ms QT Int : 406 ms P-R-T Axes : 010 -27 029 degrees QTc Int : 456 ms Sinus rhythm with Premature atrial complexes Inferior infarct , age undetermined Abnormal ECG Confirmed by ELAINE DOMINGUEZ ([id number]), photographic editor ANALILIA JACOBS ([id number]) on 08/04/2018 4:10:57 PM Referred By: Confirmed By:ELAINE DOMINGUEZ
[2018-08-04] MEDS: Carvedilol 6.25 MG TAB PO SCH (17:26)
[2018-08-04] MEDS ORDERED: Carvedilol 6.25 MG TAB PO SCH (21:00)
[2018-08-04] MEDS: Atorvastatin Calcium 40 MG TAB PO SCH (21:31)
[2018-08-04] MEDS: Labetalol HCl 100 MG/20 ML VIAL SLOW IVP PRN (21:36)
[2018-08-05] MEDS: metroNIDAZOLE 500 MG in Premix Bag 1 BAG IVPB SCH ×3 (01:30→18:36)
[2018-08-05] MEDS: Sodium Chloride 0.9% 1,000 ML IV SCH ×2 (01:33→06:25)
[2018-08-05] MEDS: Acetaminophen 500 MG TAB PO PRN ×2 (01:54→12:56)
[2018-08-05 05:23] LABS: Anion Gap 9 mmol/L (10-20); BUN (Urea Nitrogen) 7 mg/dL (8.4-25.7); Calc. Creatinine Clearance 114 mL/min (70-130); Calcium 8.4 mg/dL (7.8-10.44); Carbon Dioxide 27 mmol/L (23-31); Chloride 101 mmol/L (98-107); Estimated GFR-MDRD Greater than 90; Glucose 171 mg/dL (83-110); Sodium 134 mmol/L (136-145)
[2018-08-05] MEDS: Insulin Regular 300 UNITS/3 ML VIAL SC PRN ×3 (06:41→18:26)
[2018-08-05] MEDS ORDERED: Potassium Chloride 20 MEQ TAB PO SCH (09:00)
--- NOTE | 2018-08-05 09:01 | PDOC.PN ---
- Subjective Encounter Start Date: 08/05/18 Encounter Start Time: 09:00 Subjective: no change - Objective MAR Reviewed: Yes Vital Signs & Weight: Vital Signs (12 hours) Temp Pulse Resp BP Pulse Ox 08/05/18 08:00 97.6 F 58 L 20 185/94 H 93 L 08/05/18 04:00 98.2 F 68 19 169/85 H 93 L 08/04/18 23:59 98.4 F 89 19 175/94 H 93 L 08/04/18 21:36 71 Weight Admit Weight 209 lb Weight 210 lb 1.6 oz Most Recent Monitor Data Heart Rate from ECG 81 NIBP 157/82 NIBP BP-Mean 107 Respiration from ECG 17 SpO2 93 I&O: 08/04/18 08/05/18 08/06/18 06:59 06:59 06:59 Intake Total 4390 837 Balance 4390 837 Result Diagrams: 07/27/18 04:42 08/05/18 04:33 Additional Labs: Accuchecks 08/05/18 08/04/18 08/04/18 06:07 20:23 17:00 POC Glucose 155 H 145 H 135 H 08/04/18 10:39 POC Glucose 257 H Phys Exam - Physical Examination Neck: no JVD Respiratory: clear to auscultation bilateral Cardiovascular: RRR, no significant murmur Gastrointestinal: soft, positive bowel sounds Musculoskeletal: no edema L HEMIPLEGIA Dx/Plan (1) Acute right MCA stroke Code(s): I63.511 - CEREB INFRC D/T UNSP OCCLS OR STENOS OF RIGHT MID CEREB ART Status: Acute Comment: neurology has seen, MRI reviewed, prognosis poor. wants to take to [place] to [facility], will notify case management, ASA rectally on hold due to bleed (2) Left-sided weakness Code(s): R53.1 - WEAKNESS Status: Acute (3) DM2 (diabetes mellitus, type 2) Status: Chronic Qualifiers: Diabetes mellitus custodial insulin use: without custodial use Diabetes mellitus complication status: without complication Qualified Code(s): E11.9 - Type 2 diabetes mellitus without complications (4) HTN (hypertension) Code(s): I10 - ESSENTIAL (PRIMARY) HYPERTENSION Status: Chronic Qualifiers: Hypertension type: essential hypertension Qualified Code(s): I10 - Essential (primary) hypertension (5) Hemiplegia affecting left nondominant side Code(s): G81.94 - HEMIPLEGIA, UNSPECIFIED AFFECTING LEFT NONDOMINANT SIDE Status: Acute Qualifiers: Cerebrovascular disease type: cerebral infarction (6) Hypokalemia Code(s): E87.6 - HYPOKALEMIA Status: Acute - Plan PT/OT add k-dur 20 daily, cont amlodipine, coreg, lasix -: cont accu/ss, OHA -: discuss placement with CM * .
[2018-08-05] MEDS: Furosemide 20 MG TAB PO SCH (09:34)
[2018-08-05] MEDS: Amlodipine 5 MG TAB PO SCH (09:35)
[2018-08-05] MEDS: glipiZIDE 5 MG TAB PO SCH ×2 (09:41→18:26)
[2018-08-05] MEDS: Lisinopril 5 MG TAB PO SCH (09:41)
[2018-08-05] MEDS: Carvedilol 6.25 MG TAB PO SCH ×2 (09:42→18:27)
--- NOTE | 2018-08-05 15:23 | DIS ---
DATE OF ADMISSION: 07/23/2018 DATE OF DISCHARGE: 08/05/2018 TRANSFER OF CARE FINAL DIAGNOSES: Right middle cerebral artery infarct, left hemiplegia, hypertension, diabetes bella ronald type 2, hypokalemia. DISCHARGE MEDICATIONS: Omeprazole 20 mg a day, furosemide 20 mg a day, amlodipine 5 mg a day, glipiz [place] 2.5 mg twice a day, K-Dur 20 mEq a day, Coreg 12.5 mg p.o. b.i.d., Lipitor 80 mg a day, Tylenol 1 000 mg p.o. q.6 hours. The patient is on no antiplatelet therapy due to hemorrhagic conversion of his right middle cerebral artery infarct. ALLERGIES: HYDROCODONE, SULFONAMIDES, IODINATED CONTRAST, LISINOPRIL. DIET: Diabetic. PENDING AT THE TIME OF DISCHARGE: Nothing. CODE STATUS: Full. CONSULTATIONS: Alexys Daniel M.D., Pulmonology and Ariel Carmichael M.D., Neurology. PROCEDURES: None. HOSPITAL COURSE: The patient was admitted to [facility] with a probable stroke, presents af ter being found down, left-sided weakness, slurred speech, left facial droop. EMS was activated. Th e patient was given TPA in the Emergency Department and admitted to ICU post-TPA. Brain CT on admiss ion, remote lacunar infarct. CT angiography, no definite obstruction. Followup brain CT on 07/23/20 18, no change. The patient was admitted, treated as stroke post thrombolysis. MRI of the brain, mul tiple areas of infarct over both cerebral hemispheres, most in a watershed distribution. There has b een hemorrhagic conversion. Antiplatelet therapy has been held since that time. The patient has had 2 more CTs of the brain during his stay, which all revealed the same stroke with hemorrhagic convers ion. Three CBCs were done 07/23/2018, 07/24/2018 and 07/27/2018 with no significant abnormality. Ch emistries, blood sugars were followed, Accu-Cheks and sliding scale. His sodium has been low at 3.0. He has been placed on potassium. He remains with a dense left hemiplegia. He has some right-sided neglect. He has been followed with PT, OT. Currently eating adequately. He has finally received nsurance approval for his transfer to rehab. He is being transferred to rehab for ongoing care. Aft er rehabilitation, he will need to have a PCP named for followup. He will eventually need to be plac ed on aspirin once his hemorrhagic conversion has resolved.
[2018-08-05 16:22] VITALS: TEMP 98
[2018-08-05 18:35] VITALS: BP 166/86
[2018-08-06] MEDS ORDERED: Potassium Chloride 20 MEQ TAB PO SCH (08:00)
== END 2018-08-05 19:09 | DRG 61 ==
LOC: ERS 03:52 → CCU 05:47 → ERS 06:52 → CCU 06:52 → 2SE 07-25 10:01
PROVIDERS: ADMIT Internal Medicine; ATTEND Internal Medicine
DX: I63.511 Cerebral infarction due to unspecified occlusion or stenosis of right middle cerebral artery (principal); I61.9 Nontraumatic intracerebral hemorrhage, unspecified; G81.94 Hemiplegia, unspecified affecting left nondominant side; I10 Essential (primary) hypertension; E11.9 Type 2 diabetes mellitus without complications; M19.90 Unspecified osteoarthritis, unspecified site; K21.9 Gastro-esophageal reflux disease without esophagitis; I71.4 Abdominal aortic aneurysm, without rupture; I65.21 Occlusion and stenosis of right carotid artery; R19.7 Diarrhea, unspecified; E87.6 Hypokalemia; Z88.5 Allergy status to narcotic agent; Z88.2 Allergy status to sulfonamides; Z88.6 Allergy status to analgesic agent; Z91.041 Radiographic dye allergy status; Z85.46 Personal history of malignant neoplasm of prostate
CPT/HCPCS: 36415; 36416; 70450; 70496; 70498; 70551; 72125; 80048; 80053; 80061; 82550; 82553; 83735; 84484; 85025; 85610; 85730; 86850; 86900; 86901; 87045; 87046; 87324; 87449; 87899; 93005; 93306; 94760; 96365; C9113; G8978-GP-CM; G8979-GP-CL; G8987-GO-CM; G8987-GO-CN; G8988-GO-CK; G9159-GN-CN; G9160-GN-CL; J0360; J1815; J2997; S0028

== ENCOUNTER 2018-08-25 16:41 | Outpatient (CLI) | payer BC ==
--- NOTE | 2018-08-25 18:29 | RAD ---
RADIOGRAPH LEFT HAND 2 VIEWS: Date: 08/25/18 HISTORY: 78-year-old male with osteoarthritis. Left hand pain. FINDINGS: Degenerative changes are severe at first CMC, mild to moderate at second, third, and fourth DIPs, and first IP, and severe at third MCP. No major pathology of PIPs or the rest of the CMCs, or intercarpa l joints. Radiocarpal joint appears normal. Calcifications of the TFCC. IMPRESSION: 1. Osteoarthrosis, most severe at the first carpometacarpal joint and third metacarpophalangeal join t. 2. 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 POS: PORSHA
--- NOTE | 2018-08-25 18:30 | RAD ---
RADIOGRAPH LEFT WRIST 2 VIEWS: Date: 08/24/18 HISTORY: 78-year-old male with osteoarthritis. FINDINGS: Severe DJD at first CMC. Calcification at TFCC. No high grade DJD at DRUJ, the rest of the CMCs, inte rcarpal joints, or radiocarpal joint. IMPRESSION: 1. Severe osteoarthrosis of the first carpometacarpal joint. 2. Calcification at the triangular fibrocartilage complex suggestive of CPPD. POS: SEPIDEH
== END 2018-08-25 16:42 | disposition home or self-care (01) ==
LOC: RAD 16:41
PROVIDERS: ATTEND Physical Medicine & Rehabilitation
DX: M19.90 Unspecified osteoarthritis, unspecified site (principal); I10 Essential (primary) hypertension; E11.9 Type 2 diabetes mellitus without complications; R13.10 Dysphagia, unspecified; K21.9 Gastro-esophageal reflux disease without esophagitis; E87.1 Hypo-osmolality and hyponatremia; M18.12 Unilateral primary osteoarthritis of first carpometacarpal joint, left hand; M19.042 Primary osteoarthritis, left hand; M11.232 Other chondrocalcinosis, left wrist

== ENCOUNTER 2019-08-09 17:24 | Inpatient (IN) | payer BC ==
[~2019-08-09 17:24] MED LIST: Iopamidol-370 76% 500 ML 1 ML ONE
[2019-08-09 17:58] LABS: #Basophils 0.1 thou/uL (0.0-0.2); #Eosinphils 0.5 thou/uL (0.0-0.7); #Lymphocytes 3.1 thou/uL (1.20-3.40); #Monocytes 0.7 thou/uL (0.11-0.59); #Neutrophils 5.2 thou/uL (1.40-6.50); %Basophils 1.1 % (0.0-1.0); %Eosinophils 4.8 % (0.0-10.0); %Monocytes 7.7 % (0.0-10.0); %Neutrophils 54.3 % (42.0-75.0); Hemoglobin 14.5 g/dL (14.0-18.0); Mean Corpuscular HGB CONC 34.1 g/dL (32.0-36.0); Mean Corpuscular Hemoglobin 30.9 pg (27.0-31.0); Mean Corpuscular Volume 90.4 fL (78.0-98.0); Mean Platelet Volume 7.8 fL (7.4-10.4); Platelet Count 271 thou/uL (130-400); RBC Distribution Width 12.8 % (11.5-14.5); Red Blood Cell (RBC) Count 4.68 mill/uL (4.70-6.10); White Blood Cell (WBC) Count 9.6 thou/uL (4.8-10.8)
[2019-08-09 18:28] LABS: ALT (SGPT) 19 U/L (8-55); AST (SGOT) 20 U/L (5-34); Albumin 3.7 g/dL (3.4-4.8); Alkaline Phosphatase 113 U/L (40-110); Anion Gap 11 mmol/L (10-20); BUN (Urea Nitrogen) 12 mg/dL (8.4-25.7); Bilirubin, Total 0.5 mg/dL (0.2-1.2); Calc. Creatinine Clearance 0 mL/min (70-130); Calcium 9.8 mg/dL (7.8-10.44); Carbon Dioxide 30 mmol/L (23-31); Chloride 102 mmol/L (98-107); Estimated GFR-MDRD 88; Globulin 3.1 g/dL (2.4-3.5); Glucose 157 mg/dL (83-110); Protein, Total 6.8 g/dL (5.8-8.1); Sodium 139 mmol/L (136-145)
[2019-08-09] MEDS ORDERED: Famotidine/PF 20 mg/2ml Vial ONE (19:13)
[2019-08-09] MEDS ORDERED: diphenhydrAMINE 50 MG/ML VIAL ONE (19:13)
[2019-08-09] MEDS ORDERED: methylPREDNISolone Sod Succ/PF 125 MG/2 ML VIAL ONE (19:13)
[2019-08-09] MEDS ORDERED: cloNIDine 0.1 MG TAB ONE (19:53)
--- NOTE | 2019-08-09 21:14 | CT ---
HEAD CT WITHOUT CONTRAST: Comparison: 03-28-19 History: Dysphasia, dysarthria. FINDINGS: Stable malacic and glottic changes involving the cerebrum. No midline shift of mass effect. No parenc hymal hemorrhage or extraaxial hematoma. Remote lacunar infarct involving the left lentiform nucleus, unchanged. Remote lacunar infarct involving the right jacobo radiata. Adequate aeration of the sinuses and mastoid air cells. Cavernous carotid atherosclerosis. IMPRESSION: 1. Extensive malacic and glottic change with remote insult. If there is concern for an acute infarct, consider brain MRI. POS: PPP
[2019-08-09] MEDS ORDERED: Gabapentin 300 MG CAP PO SCH (21:15)
--- NOTE | 2019-08-09 21:43 | CT ---
CTA BRAIN WITH IV CONTRAST AND 3D POSTPROCESSING: Date: 08/09/19 HISTORY: Dysphagia and dysarthria. FINDINGS/IMPRESSION: Calcified plaque is noted in the carotid siphons. No evidence of high grade stenosis, major branch oc clusion, or aneurysmal formation is seen in the vertebrobasilar or carotid artery systems. POS: PORSHA
[2019-08-10 09:46] VITALS: BMI 27.4
[2019-08-10] MEDS ORDERED: Dextrose 50% Abboject 50 ML SYRINGE SLOW IVP PRN (10:53)
[2019-08-10] MEDS ORDERED: Guaifenesin DM 100-10/5 ML UDCUP PO PRN (10:53)
[2019-08-10] MEDS ORDERED: Senokot S 8.6-50 MG TAB PO PRN (10:53)
[2019-08-10] MEDS ORDERED: Dextrose 5% in Water 1,000 ML IV PRN (10:53)
[2019-08-10] MEDS ORDERED: Ondansetron PF 4 MG/2 ML Vial IVP PRN (10:53)
[2019-08-10] MEDS ORDERED: HumaLOG 300 UNITS/3 ML VIAL SC PRN ×2 (10:53)
[2019-08-10] MEDS ORDERED: Bisacodyl 10 MG SUPP PR PRN (10:53)
[2019-08-10] MEDS ORDERED: Acetaminophen 325 MG TAB PO PRN (10:53)
[2019-08-10] MEDS ORDERED: glipiZIDE 5 MG TAB PO SCH (12:30)
[2019-08-10] MEDS ORDERED: cloNIDine 0.1 MG TAB PO SCH (12:30)
[2019-08-10] MEDS ORDERED: DULoxetine 30 MG CAP PO SCH (12:30)
[2019-08-10] MEDS ORDERED: Famotidine 20 MG TAB PO SCH (12:30)
[2019-08-10] MEDS ORDERED: Aspirin 325 mg Enteric Coated Tablet PO SCH (12:30)
[2019-08-10] MEDS ORDERED: Enoxaparin Sodium 40 MG/0.4 ML SYRINGE SC SCH (12:30)
--- NOTE | 2019-08-10 15:34 | HP ---
REASON FOR ADMISSION: Possible TIA. HISTORY OF PRESENTING ILLNESS: The patient and the give history of Mr. Vences having trouble talking. He did not make sense, although he was fluently talking. This happened while they were eating lunch yesterday afternoon at a table. He was aware that he was not making sense. He did not have any new specific weakness in any of the extremities as such but has old left hemiplegia. No complaints of slurred speech per . He has had these symptoms off and on multiple times and she finally brought him to the emergency room. PAST MEDICAL AND SURGICAL HISTORY: History of CVA with left hemiparesis 1 year ago, this was a hemorrhagic stroke. He has had 2 small lacunar infarct after that on the right side of his brain. He is right-handed. He is currently wheelchair bound. Depression, recent urinary tract infection for which he was treated in [place] for 3 days on IV Rocephin and was sent home on Macrobid, diabetes mellitus type 2, hypertension, dyslipidemia, osteoarthritis, history of prostate cancer, GERD, history of prostatectomy, back surgery x4, tonsillectomy. CURRENT MEDICATIONS: The patient is on; 1. Cymbalta 30 mg p.o. daily. 2. Macrobid 100 mg twice daily for a total of 3 more tablets for UTI. 3. Zofran p.r.n. 4. Motrin p.r.n. 5. Glipizide 5 mg daily. 6. Clonidine 0.1 mg p.o. twice daily. 7. Lipitor 80 mg p.o. daily. 8. Gabapentin 600 mg p.o. at bedtime. ALLERGIES: HYDROCODONE, IODINE, LISINOPRIL, SULFA, TYLENOL, AND ADHESIVE. PERSONAL HISTORY: Does not abuse alcohol or drugs. No history of smoking. The patient is currently wheelchair bound. FAMILY HISTORY: Mother at the age of 88 years. She during CABG procedure. Father at the age of 53 years, he was involved in a motor vehicle accident and had busted blood vessels and likely blood. CODE STATUS: Full. Power of trust and estates attorney is his . REVIEW OF SYSTEMS: CONSTITUTIONAL: Negative for weight loss or gain, ability to conduct usual activities. SKIN: Negative for rash, itching. EYES: Negative for double vision, pain. ENT/MOUTH: Negative for nose bleeding, neck stiffness, pain, tenderness. CARDIOVASCULAR: Negative for palpitations, dyspnea on exertion, orthopnea. RESPIRATORY: Negative for shortness of breath, wheezing, cough, hemoptysis, fever or night sweats. GASTROINTESTINAL: Negative for poor appetite, abdominal pain, heartburn, nausea , vomiting, constipation, or diarrhea. GENITOURINARY: Negative for urgency, frequency, dysuria, nocturia. MUSCULOSKELETAL: Negative for pain, swelling. NEUROLOGIC/PSYCHIATRIC: Negative for anxiety, depression. ALLERGY/IMMUNOLOGIC: Negative for skin rash, bleeding tendency. PHYSICAL EXAMINATION: GENERAL: The patient is an 79-year-old male who is currently not in any acute distress. VITAL SIGNS: Blood pressure 160/98, pulse 86 per minute, respiratory rate 18 per minute, temperature 98.2 degrees Fahrenheit, saturating 98% on room air. NECK: Supple. No elevated JVD. HEENT: Eyes; extraocular muscles intact. Pupils reacting to light. Oral cavity, mucous membranes are moist. No exudates or congestion. CARDIOVASCULAR SYSTEM: S1 and S2 heard. Regular rhythm. RESPIRATORY SYSTEM: Air entry 1+ bilateral. No rales or rhonchi. ABDOMEN: Soft. Bowel sounds heard. No tenderness, rigidity, or guarding. EXTREMITIES: No peripheral edema or calf tenderness. VASCULAR SYSTEM: Peripheral pulses 1+ bilateral. No ischemic ulcerations or gangrene. CENTRAL NERVOUS SYSTEM: The patient has chronic left hemiparesis, he is plegic in the left lower extremity. The patient has a strength of 2 to 3/5 in left upper extremity, but 0 to 5 in left lower extremity. These are chronic per who is here at bedside. Right sided extremity, he moves them well. No gross cranial nerve deficits noted. PSYCHIATRIC SYSTEM: The patient's mood is euthymic. No hallucinations or delusions. LABORATORY DATA: White count of 9, H and H of 14 and 42, platelet count 271, MCV is 90 with 54% neutrophils. Electrolytes are stable. BUN 12, creatinine 0.8, serum glucose 157. Liver enzymes are within normal limits. Albumin 3.7. First set of troponin is negative. CT brain without contrast done showed extensive malacic and glottic change with remote insult. No acute infarcts seen. There is remote lacunar infarct in the left lentiform nucleus and right jacobo radiata as well. CT angio brain shows no high-grade stenosis, major branch occlusion, or aneurysm formation. EKG shows normal sinus rhythm at 67 beats per minute. There is Q-wave seen in leads II, III, aVF, V2 and lead V1-V2 with poor R-wave progression. CLINICAL IMPRESSION AND PLAN: The patient will be under observation on stroke unit for possible transient ischemic attack. He has had trouble with incoherent speech yesterday. No new motor deficits are present. He has known history of left hemiplegia with left lower extremity worse than left upper extremity. He will have an MRI without contrast and echo with 2D Doppler for LV function to complete stroke workup. The is also concerned his recent urinary tract infection if it is resolved or not. In view of this, we will obtain a urinalysis. We will consult Stroke Team. We will continue Lipitor high dose along with aspirin full dose, Cymbalta, Neurontin, glipizide. We will also continue his Macrobid for a total of 3 more doses to complete his course of antibiotics for UTI. We will continue to closely monitor him on stroke unit for now. Job ID: [id number] [facility]
[2019-08-10 15:39] LABS: Bacteria/HPF None Seen HPF (None Seen); Bilirubin Negative (Negative); Blood, Urine Negative (Negative); Clarity Clear (Clear); Glucose, Urine (Dipstick) Greater than 1000 mg/dL (Negative); Leukocyte Negative Leu/uL (Negative); Nitrite Negative (Negative); Protein, Urine (Dipstick) Negative (Neg-Trace); RBC/HPF 0-3 HPF (0-3); Squamous Epithelial None Seen HPF (0-3); Urobilinogen Normal mg/dL (Less than 2); WBC/HPF 0-3 HPF (0-3)
[2019-08-10 15:40] LABS: Urine Culture Reflex No No
[2019-08-10] MEDS: cloNIDine 0.1 MG TAB PO SCH (20:45)
[2019-08-10] MEDS: Gabapentin 300 MG CAP PO SCH (20:46)
[2019-08-10] MEDS: Nitrofurantoin Monohyd/M-Cryst 100 MG CAP PO SCH (20:47)
[2019-08-10] MEDS: Famotidine 20 MG TAB PO SCH (20:47)
[2019-08-10] MEDS: Atorvastatin Calcium 40 MG TAB PO SCH (21:26)
[2019-08-11 05:21] LABS: #Basophils 0.1 thou/uL (0.0-0.2); #Eosinphils 0.3 thou/uL (0.0-0.7); #Lymphocytes 4.4 thou/uL (1.20-3.40); #Monocytes 0.8 thou/uL (0.11-0.59); #Neutrophils 4.7 thou/uL (1.40-6.50); %Basophils 0.8 % (0.0-1.0); %Eosinophils 3.1 % (0.0-10.0); %Lymphocytes 42.3 % (21.0-51.0); %Monocytes 7.8 % (0.0-10.0); Mean Corpuscular HGB CONC 34.5 g/dL (32.0-36.0); Mean Corpuscular Hemoglobin 31.2 pg (27.0-31.0); Mean Corpuscular Volume 90.4 fL (78.0-98.0); Mean Platelet Volume 8.3 fL (7.4-10.4); Platelet Count 246 thou/uL (130-400); RBC Distribution Width 12.7 % (11.5-14.5); Red Blood Cell (RBC) Count 4.18 mill/uL (4.70-6.10); White Blood Cell (WBC) Count 10.3 thou/uL (4.8-10.8)
[2019-08-11 05:38] LABS: Anion Gap 12 mmol/L (10-20); BUN (Urea Nitrogen) 17 mg/dL (8.4-25.7); Calc. Creatinine Clearance 93 mL/min (70-130); Calcium 9.2 mg/dL (7.8-10.44); Carbon Dioxide 26 mmol/L (23-31); Cardiac Risk 2.8 (Less than 4.5); Chloride 101 mmol/L (98-107); Cholesterol 122 mg/dl (< 200 Desired); Estimated GFR-MDRD Greater than 90; Glucose 107 mg/dL (83-110); HDL Cholesterol 44 mg/dL (>60 Neg Risk); LDL Cholesterol, Calculated 61 mg/dL; Potassium 3.7 mmol/L (3.5-5.1); Sodium 135 mmol/L (136-145); Triglycerides 85 mg/dL (Less than 150)
[2019-08-11] MEDS: Enoxaparin Sodium 40 MG/0.4 ML SYRINGE SC SCH (09:43)
[2019-08-11] MEDS: DULoxetine 30 MG CAP PO SCH (09:44)
[2019-08-11] MEDS: cloNIDine 0.1 MG TAB PO SCH ×2 (09:44→21:05)
[2019-08-11] MEDS: Aspirin 325 mg Enteric Coated Tablet PO SCH (09:44)
[2019-08-11] MEDS: Famotidine 20 MG TAB PO SCH ×2 (09:44→21:05)
[2019-08-11] MEDS: glipiZIDE 5 MG TAB PO SCH (09:44)
[2019-08-11] MEDS: Nitrofurantoin Monohyd/M-Cryst 100 MG CAP PO SCH ×2 (09:45→21:05)
--- NOTE | 2019-08-11 12:42 | MRI ---
MRI BRAIN NONCONTRAST: DATE: 08/11/2019 HISTORY: 79-year-old male with stroke symptoms, TIA COMPARISON: MRI of 07/26/2018 FINDINGS: Previously, there was a large number of bilateral cerebral infarctions arranged in an anteroposterior array from frontal lobes through parietal and temporal lobes, involving watershed zones between each MCA and TRENT territory of each hemisphere. Those have now evolved into regions of encephalomalaci a and gliosis. Within the right upper parasagittal frontal lobe, there is a focal approximately 1.7 x 1.2 x 1.7 cm w ell-circumscribed lesion that is T2 hypointense, T1 hyperintense, and FLAIR isointense, relative to normal brain parenchyma. It is surrounded by a hemosiderin rim. It has strongly restricted diffusion. There are also other patchy hemosiderin stains, including more inferiorly in the right paramedian fro ntal lobe contiguous with the lesion mentioned above, and in the right parietal lobe, representing hemorrhagic conversions of previously ischemic watershed infarctions. Tiny old lacunar infarction at left basal ganglia. No obstructive hydrocephalus. No acute intra-axial hemorrhage. Mild wallerian degeneration of right s [place] of brainstem. No mass effect, midline shift, or extra-axial fluid collection. IMPRESSION: 1) extensive, prominent bilateral watershed zone old infarctions of the bilateral cerebral hemisphere s (between middle cerebral artery and anterior cerebral artery territories). The worst area is in the right upper frontal lobe. 2) within the old infarctions in the right upper paramedian frontal lobe, there is a focal 1.7 cm les ion that has strongly restricted diffusion. It could be either acute infarction or a neoplasm such as a metastasis, although the appearance is not typical for either. Recommend further evaluation with MRI of brain with contrast. 3) hemosiderin stains indicating prior hemorrhagic conversion of some of the right-sided old infarcti ons. 4) tiny old lacunar infarction in left basal ganglia.
[2019-08-11] MEDS ORDERED: Magnevist 469MG/ML 20 ML VIAL ONE (14:03)
--- NOTE | 2019-08-11 16:08 | MRI ---
MRI brain with contrast: DATE: 08/11/2019 HISTORY: 79-year-old male with old bilateral multiple cerebral infarctions. Noncontrast MRI performed earlier today shows masslike lesion in the right frontal lobe within one of the old infarctions that has restricted diffusion. Contrast enhanced MRI was recommended for further evaluation. FINDINGS: The lesion in question measures approximately 3 x 2 x 1.5 cm, has irregular but well-defined margins with thin rim enhancement, and no appreciable central enhancement. It is moderately T1 hyperintense relative to brain parenchyma. It is surrounded by moderate size region of encephalomalacia and gliosi s from the old infarctions. There is no abnormal intra-axial enhancement elsewhere in the brain. No dural venous sinus thrombosis . IMPRESSION: The 3 cm masslike lesion in the right upper parasagittal frontal lobe parenchyma, located centrally w ithin a moderate-sized old infarction has thin rim enhancement, but no central enhancement. The appearance is not typical for any common entity. Perhaps it represents an unusual manifestation of gl iotic scar tissue. Recommend serial follow-up MRIs of the brain with and without contrast, beginning in 6 months.
--- NOTE | 2019-08-11 16:31 | PDOC.HOSPP ---
- Subjective Encounter Date: 08/11/19 Encounter Time: 08:35 Subjective: awake, speaking fluently no new weakness waiting for his to join him for breakfast - Objective Vital Signs & Weight: Vital Signs (12 hours) Temp Pulse Pulse Resp BP BP BP 08/11/19 15:22 98.2 F 73 16 158/88 H 08/11/19 11:48 98.6 F 61 16 144/75 H 08/11/19 09:59 67 135/74 08/11/19 09:44 135/74 08/11/19 07:44 98.0 F 68 16 135/74 Pulse Ox 08/11/19 15:22 96 08/11/19 11:48 93 L 08/11/19 09:59 08/11/19 09:44 08/11/19 07:44 95 Weight Weight 191 lb 3.2 oz I&O: 08/10/19 08/11/19 08/12/19 06:59 06:59 06:59 Intake Total 1220 Balance 1220 Result Diagrams: 08/11/19 04:38 08/11/19 04:37 Additional Labs: Accuchecks 08/11/19 08/11/19 08/10/19 10:37 05:56 20:14 POC Glucose 183 H 110 176 H 08/10/19 16:49 POC Glucose 162 H Hospitalist ROS - Medication Medications: Active Medications Generic Name Dose Route Start Last Admin Trade Name Freq PRN Reason Stop Dose Admin Aspirin 325 mg 08/11/19 09:00 08/11/19 09:44 Ecotrin PO 325 mg DAILY DAHLIA Administration Atorvastatin Calcium 80 mg 08/10/19 21:00 08/10/19 21:26 Lipitor PO Not Given HS DAHLIA Clonidine 0.1 mg 08/10/19 21:00 08/11/19 09:44 Catapres PO 0.1 mg BID DAHLIA Administration Duloxetine HCl 30 mg 08/11/19 09:00 08/11/19 09:44 Cymbalta PO 30 mg QAM DAHLIA Administration Enoxaparin Sodium 40 mg 08/11/19 09:00 08/11/19 09:43 Lovenox SC 40 mg 0900 DAHLIA Administration Famotidine 20 mg 08/10/19 21:00 08/11/19 09:44 Pepcid PO 20 mg BID DAHLIA Administration Gabapentin 600 mg 08/10/19 21:00 08/10/19 20:46 Neurontin PO 600 mg HS DAHLIA Administration Glipizide 5 mg 08/11/19 08:00 08/11/19 09:44 Glucotrol PO 5 mg QAM-WM DAHLIA Administration Nitrofurantoin Macrocrystals 100 mg 08/10/19 21:00 08/11/19 09:45 Macrobid PO 08/11/19 21:01 100 mg BID DAHLIA Administration - Exam General Appearance: NAD, awake alert Eye: anicteric sclera ENT: no oropharyngeal lesions, moist mucosa Neck: supple, no JVD Heart: RRR, no murmur Respiratory: no wheezes, no rales Gastrointestinal: soft, non-tender, non-distended, normal bowel sounds Extremities: no cyanosis, no edema Neurological: hemiplegia Psychiatric: normal affect, A&O x 3 Hosp A/P (1) Acute CVA (cerebrovascular accident) Code(s): I63.9 - CEREBRAL INFARCTION, UNSPECIFIED Status: Acute (2) Dyslipidemia Code(s): E78.5 - HYPERLIPIDEMIA, UNSPECIFIED Status: Chronic (3) UTI (urinary tract infection) Status: Acute Qualifiers: Urinary tract infection type: acute cystitis Hematuria presence: without hematuria Qualified Code(s): N30.00 - Acute cystitis without hematuria (4) DM2 (diabetes mellitus, type 2) Status: Chronic Qualifiers: Diabetes mellitus vacuum drier tender insulin use: without vacuum drier tender use Diabetes mellitus complication status: without complication Qualified Code(s): E11.9 - Type 2 diabetes mellitus without complications (5) HTN (hypertension) Code(s): I10 - ESSENTIAL (PRIMARY) HYPERTENSION Status: Chronic Qualifiers: Hypertension type: essential hypertension Qualified Code(s): I10 - Essential (primary) hypertension (6) Hemiplegia affecting left nondominant side Code(s): G81.94 - HEMIPLEGIA, UNSPECIFIED AFFECTING LEFT NONDOMINANT SIDE Status: Chronic Qualifiers: Cerebrovascular disease type: cerebral infarction - Plan MRI with and without contrast results noted await neuro opinion d/w Mrs.Miles Vasques over phone about results of MRI continue asp, lipitor, clonidine, glipizide, neurontin and cymbalta prior h/o multiple cva including hemorrhagic stroke with left hemiplegia still with residual, wheel chair/bed bound status hemo/neurostable change status to inpatient stroke team
[2019-08-11] MEDS: Gabapentin 300 MG CAP PO SCH (21:05)
[2019-08-11] MEDS: Atorvastatin Calcium 40 MG TAB PO SCH (21:05)
--- NOTE | 2019-08-12 00:34 | CON ---
DATE OF CONSULTATION: 08/11/2019 CONSULTING PHYSICIAN: Hospitalist Service. IMPRESSION: 1. Transient ischemic attack with transient expressive aphasia. 2. Prior stroke in right anterior cerebral artery and middle cerebral artery distributions with some scarring. 3. No carotid disease. 4. Normal cardiac output of 60% to 65%. PLAN: 1. Restart aspirin. 2. Continue statin. 3. The patient can be discharged home. 4. Office followup in 2 months. HISTORY OF PRESENT ILLNESS: Mr. Vences is an 79-year-old gentleman who suffered a stroke last year. There was a prominent hemorrhage within the stroke. Therefore, he was not discharged on antiplatelet therapy. He came in with some back pain. His noted a transient episode of expressive aphasia lasting about 30 minutes. His speech was quite garbled and nonsensical. There was no associated facial droop or weakness. He had no seizure-like activity associated with it. He had a CT on admission which showed the old area of damage and some minimal residual hemorrhagic change. He had an MRI of the brain, which showed an inconclusive area of diffusion abnormality. Followup MRI with contrast was concluded to be consistent with some scar tissue rather than anything more malignant. He is without any new focal symptoms. PAST MEDICAL HISTORY: Hypertension, diabetes, stroke with prior tPA treatment. SOCIAL HISTORY: He is . No alcohol or drug abuse. FAMILY HISTORY: Noncontributory. ALLERGIES: TAPE, HYDROCODONE, SULFA, IODINE, TYLENOL, AND LISINOPRIL. REVIEW OF SYSTEMS: Ten-system review of systems is otherwise negative. PHYSICAL EXAMINATION: GENERAL: He is a well-nourished elderly man, lying in bed, in no acute distress. VITAL SIGNS: Stable. He is afebrile. HEENT: Pupils are equal and reactive. Conjunctivae are clear. Oropharynx is clear. Cranium, normocephalic and atraumatic. NECK: Supple. No lymphadenopathy. EXTREMITIES: No cyanosis, clubbing, or edema. NEUROLOGIC: He is alert and cooperative. His speech is fluent and clear. His attention and concentration are appropriate. He answers questions appropriately. Follows commands appropriately. Cranial nerves are intact. Motor exam shows good strength bilaterally in the upper extremities. Gait is not tested. No abnormal movements are seen. Sensation is intact to touch. LABORATORY DATA: EKG shows a normal sinus rhythm. SUMMARY: This is an elderly man, who had a transient episode of expressive aphasia. I would restart antiplatelet therapy. Continue with statin. I would be happy to follow up with him as an outpatient. I do not think his MRI findings are of any clinical significance. Job ID: [id number]
[2019-08-12 07:38] VITALS: BP 147/95; TEMP 97.4
[2019-08-12 08:11] LABS: Total PSA Less than 0.1 ng/mL (0.0-4.0)
[2019-08-12] MEDS: glipiZIDE 5 MG TAB PO SCH (08:24)
[2019-08-12] MEDS: DULoxetine 30 MG CAP PO SCH (08:24)
[2019-08-12] MEDS: Enoxaparin Sodium 40 MG/0.4 ML SYRINGE SC SCH (08:24)
[2019-08-12] MEDS: cloNIDine 0.1 MG TAB PO SCH (08:24)
[2019-08-12] MEDS: Famotidine 20 MG TAB PO SCH (08:25)
[2019-08-12] MEDS: Aspirin 325 mg Enteric Coated Tablet PO SCH (08:25)
--- NOTE | 2019-08-12 11:34 | DIS ---
DATE OF ADMISSION: 08/09/2019 DATE OF DISCHARGE: 08/12/2019 PRIMARY CARE PHYSICIAN: Dr. Yuniel Fuller. DISCHARGE DIAGNOSES: 1. Transient ischemic attack with transient expressive aphasia. 2. 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 3. Diastolic heart dysfunction. 4. Hypertension. 5. Hemiplegia affecting left non-dominant side. 6. Dyslipidemia. 7. Urinary tract infection on treatment. 8. Diabetes mellitus. 9. Stage II sacral ulcer. present on admission. CONSULT: Neurology. HOSPITAL COURSE: An 79-year-old male with prior history of large stroke with hemorrhagic component, last TIA associated with residual left-sided hemiplegia, admitted to the hospital due to acute onset of transient expressive aphasia, which resolved before the patient presented to the hospital. Of note, the patient was not on antiplatelet following last stroke due to hemorrhagic component. CT scan obtained on admission showed old area of damage and some minimal residual hemorrhagic change. MRI of the brain showed an inconclusive area of diffusion abnormality, raising concern for possible stroke. However, followup MRI with contrast showed features consistent with some scar tissue rather than any acute infarction or malignancy. The patient remained stable and was further evaluated with echocardiogram of the heart as well as carotid Dopplers, which were unremarkable. However, echocardiogram showed diastolic dysfunction. The patient received PT and OT, and was subsequently discharged to home to continue outpatient physical and occupational therapy. PHYSICAL EXAMINATION: VITAL SIGNS: Temperature 97.4, pulse 78, respiratory rate 16, SpO2 of 97% on room air, blood pressure is 147/95. GENERAL: Obese male, in no distress. Afebrile. Anicteric. Acyanotic. HEENT: Normocephalic and atraumatic. Oral mucosa is moist. CARDIOVASCULAR: Regular rhythm and rate with normal heart sounds one and two. RESPIRATORY: Good air entry bilaterally with no crackle or rhonchi or use of accessory muscles. GI: Obese, soft, nontender, nondistended with normal bowel sounds. EXTREMITIES: Grossly normal looking atraumatic with no obvious edema or erythema. GRINDER AND PLATER: Conscious, alert, oriented x3 with appropriate mental status. Cranial nerves 2 through 12 are grossly intact. Left-sided hemiparesis noted. DISCHARGE CONDITION: Improved to baseline. DISPOSITION: Home. FOLLOWUP: Follow up with PCP on August 27, 2019. The patient also was instructed to resume outpatient physical and occupational therapy. DISCHARGE MEDICATIONS: 1. Lipitor 80 mg daily. 2. Clonidine 0.1 mg p.o. b.i.d. 3. Cymbalta 30 mg p.o. daily. 4. Neurontin 600 mg p.o. daily at bedtime. 5. Glipizide 5 mg p.o. daily. 6. Aspirin 325 mg p.o. daily. 7. Carvedilol 3.125 mg p.o. b.i.d. TIME SPENT: Discharge took more than 33 minutes. Job ID: [id number] [facility]
--- NOTE | 2019-08-12 15:33 | PQF ---
CLINICAL DOCUMENTATION IMPROVEMENT CLARIFICATION FORM: ICD-10 Updated PLEASE DO AN ADDENDUM TO THE PROGRESS NOTE WITH ANY DOCUMENTATION UPDATES OR ADDITIONS AND CARRY THROUGH TO DC SUMMARY. THANK YOU. DATE: 08/12/2019 ATTN: Dr. Reese Please exercise your independent, professional judgment in responding to the clarification form. Clinical indicators are provided on the bottom of this form for your review Please check appropriate box(s): [ x ] I (concur) with the Nursing Assessment findings as stated below. [ ] Pressure Ulcer: [ ] Location: POA: [ ] Yes [ ] No [ ] Unable to determine Stage (I to IV): ___(Left___ Right___ Bilateral__ N/A__) [ ] Location: POA: [ ] Yes [ ] No [ ] Unable to determine Stage (I to IV): ___(Left__Right__Bilateral__N/A__) [ ] No pressure ulcer diagnosis [ ] Deep tissue injury [ ] Other diagnosis [ ] Unable to determine In addition, please specify: Present on Admission (POA): [ x ] Yes [ ] No [ ] Unable to determine For continuity of documentation, please document condition throughout progress notes and discharge summary. Thank You. CLINICAL INDICATORS - SIGNS / SYMPTOMS / LABS / RSULTS AND LOCATION IN MR ER Nursing Skin Assessment 08/09 @ 1730: Inspection findings include pressure ulcer to the sacrum, Stage II Observation Nursing Assess. 08/10 @ 0803: Sacrococcygeal Pressure Ulcer. Stage II RISKS: H&P 08/09: Hx of CVA with left hemiparesis 1 yr ago. He is currently wheelchair bound. TREATMENT: Observation Nsg Assessment: Mepilex Ulcer dressing Nursing Assess: 08/11: Skin Interventions; Position changes: Q2H in bed, Q1H in chair Skin kept from excessive moisture Pre-ulcer skin changes limited to persistent focal edema (Stage 1) Abrasion, blister, partial thickness skin loss involving epidermis and/or dermis (Stage 2) Full thickness skin loss involving damage or necrosis of SQ tissue. (Stage 3) Necrosis of soft tissue through to underlying muscle, tendon, or bone. (Stage 4) Purple or maroon discolored skin or blood filled blister PRESSURE ULCER STAGES Stage I: Erythema Stage II: Partial thickness Stage III: Full thickness Stage IV: Necrosis to muscle/bone Thank you, Cecilia (This form is maintained as a part of the permanent medical record) 2015 [employer]. All Rights Reserved Cecilia Culp RN, [email or web address] [email or web address] Office: [phone] [email or web address]
== END 2019-08-12 12:27 | disposition home or self-care (01) | DRG 69 ==
LOC: ERS 17:24 → ERHOLD 22:50 → OBSVTOIN 22:50 → 2SE 08-10 07:56
PROVIDERS: ADMIT Family Medicine; ATTEND Family Medicine
DX: G45.9 Transient cerebral ischemic attack, unspecified (principal); I69.354 Hemiplegia and hemiparesis following cerebral infarction affecting left non-dominant side; N39.0 Urinary tract infection, site not specified; R47.01 Aphasia; I10 Essential (primary) hypertension; M19.90 Unspecified osteoarthritis, unspecified site; K21.9 Gastro-esophageal reflux disease without esophagitis; E78.5 Hyperlipidemia, unspecified; I51.89 Other ill-defined heart diseases; E11.9 Type 2 diabetes mellitus without complications; E66.9 Obesity, unspecified; Z85.46 Personal history of malignant neoplasm of prostate; Z88.2 Allergy status to sulfonamides; Z88.8 Allergy status to other drugs, medicaments and biological substances; Z79.84 Long term (current) use of oral hypoglycemic drugs; Z79.899 Other long term (current) drug therapy; Z88.9 Allergy status to unspecified drugs, medicaments and biological substances; Z91.041 Radiographic dye allergy status; Z99.3 Dependence on wheelchair; Z74.01 Bed confinement status; Z88.5 Allergy status to narcotic agent; Z68.27 Body mass index [BMI] 27.0-27.9, adult
CPT/HCPCS: 36415; 36416; 70450; 70496; 70551; 70552; 80048; 80053; 80061; 81001; 82378; 84153; 84154; 84484; 85025; 93005; 93306; 94760; 96374; 96375; A9579; J1200; J1650; J2930; Q9967; S0028

== ENCOUNTER 2021-10-13 12:52 | Inpatient (IN) | payer MEDICARE ==
[2021-10-13 13:55] LABS: #Eosinphils 0.7 thou/uL (0.0-0.7); #Lymphocytes 2.4 thou/uL (1.20-3.40); #Neutrophils 6.7 thou/uL (1.40-6.50); %Basophils 0.5 % (0.0-1.0); %Eosinophils 6.2 % (0.0-10.0); %Lymphocytes 22.3 % (21.0-51.0); Hemoglobin 12.1 g/dL (14.0-18.0); Mean Corpuscular HGB CONC 33.5 g/dL (32.0-36.0); Mean Corpuscular Hemoglobin 31.3 pg (27.0-31.0); Mean Corpuscular Volume 93.5 fL (78.0-98.0); Mean Platelet Volume 7.8 fL (7.4-10.4); Platelet Count 337 thou/uL (130-400); RBC Distribution Width 13.1 % (11.5-14.5); Red Blood Cell (RBC) Count 3.87 mill/uL (4.70-6.10); White Blood Cell (WBC) Count 10.7 thou/uL (4.8-10.8)
[2021-10-13 14:15] LABS: Anion Gap 11 mmol/L (10-20); BUN (Urea Nitrogen) 13 mg/dL (8.4-25.7); Calc. Creatinine Clearance 0 mL/min (70-130); Calcium 8.6 mg/dL (7.8-10.44); Carbon Dioxide 27 mmol/L (23-31); Chloride 99 mmol/L (98-107); Glucose 294 mg/dL (83-110); Potassium 3.4 mmol/L (3.5-5.1); Sodium 134 mmol/L (136-145)
[2021-10-13] MEDS ORDERED: Dextrose 50% Abboject 50 ML SYRINGE SLOW IVP PRN (15:00)
[2021-10-13] MEDS ORDERED: Ondansetron PF 4 MG/2 ML Vial IVP PRN (15:00)
[2021-10-13] MEDS ORDERED: Dextrose 5% in Water 1,000 ML IV PRN (15:00)
[2021-10-13] MEDS ORDERED: ceFAZolin 2 GM/Dextrose 50 ML 2 GM in Premix Bag 1 BAG IVPB SCH (15:15)
[2021-10-13] MEDS: Acetaminophen 325 MG TAB PO SCH ×2 (17:02→21:23)
[2021-10-13] MEDS: Ibuprofen 200 MG TAB PO SCH ×2 (17:09→21:22)
[2021-10-13 18:25] VITALS: BMI 24.4
[2021-10-13] MEDS ORDERED: FLU VACC QS2021-22(65YR UP)/PF 240 MCG/0.7 ML SYRINGE IM ONE (18:45)
[2021-10-13 18:58] LABS: SARS-CoV-2 NAA Rapid Test Not Detected (NotDetected)
[2021-10-13] MEDS ORDERED: Gabapentin 300 MG CAP PO SCH (21:00)
[2021-10-13] MEDS ORDERED: Atorvastatin Calcium 40 MG TAB PO SCH (21:00)
[2021-10-13] MEDS: cloNIDine 0.1 MG TAB PO SCH (21:23)
[2021-10-13] MEDS: Famotidine 20 MG TAB PO SCH (21:23)
[2021-10-13] MEDS: Carvedilol 3.125 MG TAB PO SCH (21:23)
[2021-10-13] MEDS: Acetaminophen/Codeine 30-300mg Tablet PO PRN (23:54)
[2021-10-13] MEDS ORDERED: Lactated Ringer's 1,000 ML IV SCH (23:59)
[2021-10-14] MEDS: Acetaminophen 325 MG TAB PO SCH ×4 (04:19→20:17)
[2021-10-14] MEDS: HumaLOG 300 UNITS/3 ML VIAL SC PRN ×4 (05:54→21:40)
[2021-10-14] MEDS: Ibuprofen 200 MG TAB PO SCH ×3 (06:41→23:21)
[2021-10-14] MEDS ORDERED: Fentanyl 100 MCG/2 ML VIAL ONE (07:06)
[2021-10-14] MEDS ORDERED: ceFAZolin 2 GM/Dextrose 50 ML IVPB ONE (07:53)
[2021-10-14] MEDS ORDERED: PROPOFOL 200 MG/20 ML VIAL ONE (08:27)
[2021-10-14] MEDS ORDERED: Glycopyrrolate 0.2 MG/ML 5 ML SYRINGE ONE (08:27)
[2021-10-14] MEDS ORDERED: Rocuronium Bromide 10 MG/ML (10ML VIAL) ONE (08:27)
[2021-10-14] MEDS ORDERED: Ondansetron PF 4 MG/2 ML Vial ONE (08:27)
[2021-10-14] MEDS ORDERED: Dexamethasone 20 MG/5 ML VIAL ONE (08:27)
[2021-10-14] MEDS ORDERED: Lidocaine 1% PF 5 ML VIAL ONE (08:27)
[2021-10-14] MEDS ORDERED: Ketorolac Tromethamine 30 MG/ML VIAL ONE (10:04)
[2021-10-14] MEDS: Carvedilol 3.125 MG TAB PO SCH ×2 (11:38→20:17)
[2021-10-14] MEDS: cloNIDine 0.1 MG TAB PO SCH ×2 (11:39→20:18)
[2021-10-14] MEDS: DULoxetine 30 MG CAP PO SCH (11:47)
[2021-10-14] MEDS: Famotidine 20 MG TAB PO SCH ×2 (11:48→20:17)
[2021-10-14] MEDS ORDERED: hydrALAZINE 20 MG/ML VIAL SLOW IVP PRN (12:43)
[2021-10-14] MEDS: Gabapentin 300 MG CAP PO SCH ×2 (13:04→18:16)
[2021-10-14] MEDS: Cepastat Lozenges 1 LOZ PO PRN ×2 (14:52→18:31)
[2021-10-14] MEDS ORDERED: Lantus 1000 UNITS/10 ML VIAL SC SCH ×2 (18:00→18:30)
[2021-10-14] MEDS: ceFAZolin 2 GM/Dextrose 50 ML 2 GM in Premix Bag 1 BAG IVPB SCH ×2 (18:16→23:21)
[2021-10-14 18:51] LABS: #Lymphocytes 0.9 thou/uL (1.20-3.40); #Monocytes 0.3 thou/uL (0.11-0.59); #Neutrophils 10.6 thou/uL (1.40-6.50); %Basophils 0.1 % (0.0-1.0); %Eosinophils 0.1 % (0.0-10.0); %Monocytes 2.1 % (0.0-10.0); %Neutrophils 89.7 % (42.0-75.0); Mean Corpuscular HGB CONC 33.5 g/dL (32.0-36.0); Mean Corpuscular Hemoglobin 31.7 pg (27.0-31.0); Mean Corpuscular Volume 94.6 fL (78.0-98.0); Platelet Count 373 thou/uL (130-400); RBC Distribution Width 13.4 % (11.5-14.5); Red Blood Cell (RBC) Count 4.09 mill/uL (4.70-6.10); White Blood Cell (WBC) Count 11.8 thou/uL (4.8-10.8)
[2021-10-14 19:12] LABS: Anion Gap 14 mmol/L (10-20); BUN (Urea Nitrogen) 15 mg/dL (8.4-25.7); Calc. Creatinine Clearance 69 mL/min (70-130); Calcium 8.6 mg/dL (7.8-10.44); Carbon Dioxide 24 mmol/L (23-31); Chloride 99 mmol/L (98-107); Glucose 454 mg/dL (83-110); Magnesium 1.7 mg/dL (1.6-2.6); Phosphorus 2.9 mg/dL (2.3-4.7); Potassium 4.6 mmol/L (3.5-5.1); Sodium 132 mmol/L (136-145)
[2021-10-14] MEDS: Aspirin 81 mg Enteric Coated Tablet PO SCH (20:17)
[2021-10-14] MEDS: Atorvastatin Calcium 40 MG TAB PO SCH (20:17)
[2021-10-14] MEDS: Acetaminophen/Codeine 30-300mg Tablet PO PRN (21:35)
[2021-10-14] MEDS ORDERED: Melatonin 3 MG TAB PO SCH (23:15)
[2021-10-15] MEDS: Acetaminophen 325 MG TAB PO SCH ×4 (04:17→22:00)
[2021-10-15] MEDS: HumaLOG 300 UNITS/3 ML VIAL SC PRN ×4 (06:13→22:13)
[2021-10-15] MEDS: Ibuprofen 200 MG TAB PO SCH ×3 (06:18→22:37)
[2021-10-15 07:02] LABS: #Lymphocytes 1.7 thou/uL (1.20-3.40); #Monocytes 1.2 thou/uL (0.11-0.59); #Neutrophils 9.3 thou/uL (1.40-6.50); %Basophils 0.1 % (0.0-1.0); %Eosinophils 0.1 % (0.0-10.0); %Lymphocytes 13.7 % (21.0-51.0); %Monocytes 9.7 % (0.0-10.0); %Neutrophils 76.4 % (42.0-75.0); Hemoglobin 10.5 g/dL (14.0-18.0); Mean Corpuscular HGB CONC 32.5 g/dL (32.0-36.0); Mean Corpuscular Hemoglobin 30.7 pg (27.0-31.0); Mean Corpuscular Volume 94.5 fL (78.0-98.0); Mean Platelet Volume 7.9 fL (7.4-10.4); Platelet Count 333 thou/uL (130-400); RBC Distribution Width 13.2 % (11.5-14.5); Red Blood Cell (RBC) Count 3.43 mill/uL (4.70-6.10); White Blood Cell (WBC) Count 12.1 thou/uL (4.8-10.8)
[2021-10-15 07:26] LABS: Anion Gap 11 mmol/L (10-20); BUN (Urea Nitrogen) 19 mg/dL (8.4-25.7); Calc. Creatinine Clearance 73 mL/min (70-130); Calcium 8.2 mg/dL (7.8-10.44); Carbon Dioxide 23 mmol/L (23-31); Chloride 102 mmol/L (98-107); Glucose 364 mg/dL (83-110); Phosphorus 2.6 mg/dL (2.3-4.7); Sodium 132 mmol/L (136-145)
[2021-10-15] MEDS ORDERED: Amlodipine 5 MG TAB PO SCH (09:00)
[2021-10-15] MEDS: Famotidine 20 MG TAB PO SCH ×2 (09:05→22:10)
[2021-10-15] MEDS: cloNIDine 0.1 MG TAB PO SCH ×2 (09:05→22:10)
[2021-10-15] MEDS: ceFAZolin 2 GM/Dextrose 50 ML 2 GM in Premix Bag 1 BAG IVPB SCH (09:05)
[2021-10-15] MEDS: Carvedilol 3.125 MG TAB PO SCH ×2 (09:05→22:11)
[2021-10-15] MEDS: DULoxetine 30 MG CAP PO SCH (09:05)
[2021-10-15] MEDS: Aspirin 81 mg Enteric Coated Tablet PO SCH ×2 (09:05→22:11)
[2021-10-15] MEDS: Amlodipine 5 MG TAB PO SCH (09:05)
[2021-10-15] MEDS: Gabapentin 300 MG CAP PO SCH ×3 (09:06→18:00)
[2021-10-15] MEDS: Acetaminophen/Codeine 30-300mg Tablet PO PRN (09:06)
[2021-10-15] MEDS ORDERED: Lantus 1000 UNITS/10 ML VIAL SC SCH ×3 (09:30→21:00)
[2021-10-15] MEDS ORDERED: Bisacodyl 5 MG TAB PO PRN (11:30)
[2021-10-15] MEDS ORDERED: cloNIDine 0.1 MG TAB PO SCH (21:00)
[2021-10-15] MEDS ORDERED: Gabapentin 300 MG CAP PO SCH (21:00)
[2021-10-15] MEDS: Lantus 1000 UNITS/10 ML VIAL SC SCH (22:09)
[2021-10-15] MEDS: Atorvastatin Calcium 40 MG TAB PO SCH (22:10)
[2021-10-15] MEDS: Pramipexole Di-HCl 0.125 MG TAB PO SCH (22:11)
[2021-10-15] MEDS: Senokot 8.6 MG TAB PO SCH (22:11)
[2021-10-16] MEDS: Acetaminophen 325 MG TAB PO SCH ×4 (03:56→19:56)
[2021-10-16] MEDS: Ibuprofen 200 MG TAB PO SCH ×3 (06:27→22:43)
[2021-10-16] MEDS: HumaLOG 300 UNITS/3 ML VIAL SC PRN ×2 (06:30→22:51)
[2021-10-16] MEDS: Aspirin 81 mg Enteric Coated Tablet PO SCH ×2 (09:22→19:57)
[2021-10-16] MEDS: Pramipexole Di-HCl 0.125 MG TAB PO SCH ×2 (09:23→19:58)
[2021-10-16] MEDS: Famotidine 20 MG TAB PO SCH ×2 (09:23→19:57)
[2021-10-16] MEDS: Amlodipine 5 MG TAB PO SCH (09:24)
[2021-10-16] MEDS: Gabapentin 300 MG CAP PO SCH ×3 (09:24→16:43)
[2021-10-16] MEDS: Senokot 8.6 MG TAB PO SCH ×3 (09:24→20:13)
[2021-10-16] MEDS: cloNIDine 0.1 MG TAB PO SCH ×2 (09:24→19:57)
[2021-10-16] MEDS: Carvedilol 3.125 MG TAB PO SCH ×2 (09:24→19:57)
[2021-10-16] MEDS: Lantus 1000 UNITS/10 ML VIAL SC SCH ×2 (09:25→19:56)
[2021-10-16] MEDS: Atorvastatin Calcium 40 MG TAB PO SCH (19:57)
[2021-10-17] MEDS: Acetaminophen/Codeine 30-300mg Tablet PO PRN (02:49)
[2021-10-17] MEDS: Acetaminophen 325 MG TAB PO SCH ×2 (02:50→08:57)
[2021-10-17] MEDS: Ibuprofen 200 MG TAB PO SCH (05:53)
[2021-10-17] MEDS: HumaLOG 300 UNITS/3 ML VIAL SC PRN (05:53)
[2021-10-17 08:03] VITALS: TEMP 97.9
[2021-10-17] MEDS: Gabapentin 300 MG CAP PO SCH (08:56)
[2021-10-17] MEDS: Pramipexole Di-HCl 0.125 MG TAB PO SCH (08:56)
[2021-10-17] MEDS: cloNIDine 0.1 MG TAB PO SCH (08:57)
[2021-10-17] MEDS: Amlodipine 5 MG TAB PO SCH (08:57)
[2021-10-17] MEDS: Famotidine 20 MG TAB PO SCH (08:57)
[2021-10-17] MEDS: Senokot 8.6 MG TAB PO SCH (08:58)
[2021-10-17] MEDS: Aspirin 81 mg Enteric Coated Tablet PO SCH (08:58)
[2021-10-17] MEDS: Carvedilol 3.125 MG TAB PO SCH (08:58)
[2021-10-17 09:00] VITALS: BP 134/73
[2021-10-17] MEDS: Lantus 1000 UNITS/10 ML VIAL SC SCH (09:04)
== END 2021-10-17 09:34 | disposition home health service (06) | DRG 481 ==
LOC: ERS 12:52 → SURG A 15:00
PROVIDERS: ADMIT Specialist; ATTEND Surgery
PROC: 0QS704Z Reposition Left Upper Femur with Internal Fixation Device, Open Approach (ICD-10-PCS; principal; 2021-10-14)
DX: S72.142A Displaced intertrochanteric fracture of left femur, initial encounter for closed fracture (principal); I69.954 Hemiplegia and hemiparesis following unspecified cerebrovascular disease affecting left non-dominant side; I50.32 Chronic diastolic (congestive) heart failure; E87.1 Hypo-osmolality and hyponatremia; Z20.822 Contact with and (suspected) exposure to COVID-19; Z23 Encounter for immunization; W07.XXXA Fall from chair, initial encounter; E11.9 Type 2 diabetes mellitus without complications; M19.90 Unspecified osteoarthritis, unspecified site; K21.9 Gastro-esophageal reflux disease without esophagitis; F32.A Depression, unspecified; E78.5 Hyperlipidemia, unspecified; I11.0 Hypertensive heart disease with heart failure; E87.6 Hypokalemia; Z85.46 Personal history of malignant neoplasm of prostate; Z90.09 Acquired absence of other part of head and neck; Z88.8 Allergy status to other drugs, medicaments and biological substances; Z91.041 Radiographic dye allergy status; Z88.2 Allergy status to sulfonamides; Z88.6 Allergy status to analgesic agent; Z79.84 Long term (current) use of oral hypoglycemic drugs; Z79.899 Other long term (current) drug therapy
CPT/HCPCS: 36415; 36416; 71045; 76000; 80048; 83735; 84100; 85025; 93005; 93010; C1713; C1769; G0390; J0690; J1100; J1815; J1885; J2405; J2704; J3010; J7120; U0002